=== PATIENT | male | born 1945 | race Caucasian/White ===

== ENCOUNTER → 2021-04-22 15:03 | Outpatient (CLI) | payer MEDICARE, SELFPAY | PROVIDERS: Visit Provider Obstetrics & Gynecology Gynecology | DX: Z01.812 Encounter for preprocedural laboratory examination (principal); Z11.52 Encounter for screening for COVID-19 | CPT/HCPCS: U0003 ==

== ENCOUNTER → 2023-02-20 07:34 | Outpatient (CLI) | payer MEDICARE, SELFPAY ==
--- NOTE | 2023-02-20 07:40 | NM_ITS ---
FINAL REPORT CLINICAL HISTORY: RENAL CELL CARCINOMA RIGHT KIDNEY, C/O RT SHOULDER PAIN FINDINGS: Multiple projection images of the axial and appendicular skeleton were obtained after the intravenous injection of 25.9 mCi technetium 99m MDP. There is abnormal increased activity in the lateral right scapula. There is a photopenic central region. Finding corresponds to a lucent lesion on plain film consistent with osseous metastases. There is mild asymmetric activity in the mid right humerus which correspond to a segment of cortical expansion on plain film which may be related to underlying cortical mass. Alternatively, this could be related to traction response at the deltoid tuberosity. IMPRESSION: Increased activity in the lateral right scapula consistent with osseous metastases. Mild activity in the mid right humeral diaphysis which may be neoplastic or related to reactive change at the deltoid tuberosity. Reviewed, Interpreted and Dictated by Nicanor Raymond MD Transcribed by Tammie Nieto Authenticated and . [facility]
--- NOTE | 2023-02-20 08:01 | MR_ITS ---
FINAL REPORT CLINICAL HISTORY: RENAL CELL CARCINOMA OF RIGHT KIDNEY limited rom x 3 months shoulder pain FINDINGS: Multiple planar MR imaging of the right shoulder was performed with and without contrast. There is an expansile lobular mass in the region of the bony glenoid measuring 5.8 x 4.8 cm. This mass demonstrates increased T2 and decreased T1 signal with intense contrast enhancement consistent with a destructive aggressive mass. Mass extends to the margin of the articular surface but not through the articular surface. There is a trace amount of fluid in the subacromial/subdeltoid bursa probably due to bursitis. Supraspinatus tendon is intact. The biceps tendon is intact. IMPRESSION: Large destructive lesion in the region of the bony glenoid most consistent with renal cell metastasis. Preserved articular surfaces of the glenohumeral joint. Reviewed, Interpreted and Dictated by Nicanor Raymond MD Transcribed by Sujit Kam Authenticated and [facility]
--- NOTE | 2023-02-20 12:53 | XR_ITS ---
FINAL REPORT CLINICAL HISTORY: RT SHOULDER PAIN, H/O RT RENAL CELL CARCINOMA. MRI OF RT SHOULDER DONE TODAY FINDINGS: Right humerus Two views were obtained. There is no acute fracture or dislocation. There is an area of abnormal cortical expansion in the mid humeral diaphysis near the expected region of the deltoid tuberosity. It is more prominent than expected. It corresponds to abnormal signal on the bone scan, underlying cortical metastases cannot be excluded. IMPRESSION: Abnormal cortical expansion in the mid humeral diaphysis as above, underlying cortical metastases cannot be excluded. Reviewed, Interpreted and Dictated by Nicanor Raymond MD Transcribed by Tammie Nieto Authenticated and [facility]
--- NOTE | 2023-02-20 12:53 | XR_ITS ---
FINAL REPORT CLINICAL HISTORY: MRI OF RT SHOULDER DONE TODAY. C/O RT SHOULDER PAIN, H/O RENAL CELL CARCINOMA. FINDINGS: Right shoulder Two views were obtained. There is no acute fracture or dislocation. There is a lucent destructive mass in the right bony glenoid and lateral scapula measuring 5.2 x 4.0 cm. This corresponds to abnormal hypermetabolism on the bone scan consistent osseous metastases. IMPRESSION: Destructive mass in the right bony glenoid and lateral scapula consistent with osseous metastases. Reviewed, Interpreted and Dictated by Nicanor Raymond MD Transcribed by Tammie Nieto Authenticated and [facility]
== END ==
PROVIDERS: PCP Physician Assistant; Visit Provider Internal Medicine Hematology & Oncology
DX: M25.511 Pain in right shoulder (principal); C64.1 Malignant neoplasm of right kidney, except renal pelvis
CPT/HCPCS: 73030; 73060; 73223; 78306; A9503; A9576

== ENCOUNTER 2023-07-24 15:37 | Emergency (ER) | payer MEDICARE, SELFPAY ==
[2023-07-24 15:40] VITALS: BP 149/81; PULSE 80; RESP 18; TEMP 36.6; O2SAT 96; BMI 27.8
--- NOTE | 2023-07-24 15:41 | PC.NURSE ---
pt pinching nose just below bridge of nose r/t nose bleed from L nare.
[2023-07-24 15:51] VITALS: BMI 27.8
--- NOTE | 2023-07-24 15:53 | PC.NURSE ---
Dr. Diaz at BS
[2023-07-24 16:17] LABS: Basophils % 0.2 % (0.1-2.0); Eosinophils # 0.1 K/mm3 (0.0-0.4); Eosinophils % 0.9 % (0.1-12.0); Hematocrit 35.9 % (42.0-52.0); Hemoglobin 12.5 g/dL (14.1-18.0); Lymphocytes % 17.5 % (10-50); Mean Corpuscular HGB Conc 34.9 g/dL (31.8-35.4); Mean Corpuscular Volume 97.5 fl (80-94); Mean Platelet Volume 8.6 fl (7.4-10.4); Monocytes # 0.3 K/mm3 (0.1-1.0); Monocytes % 5.5 % (1.7-9.3); Neutrophils # 4.2 K/mm3 (1.8-7.8); Neutrophils % 75.9 % (37.0-80.0); Platelet Count 124 K/mm3 (142-424); Red Blood Count 3.68 M/mm3 (4.60-6.20); Red Cell Distribution Width 14.2 % (11.5-17.5); White Blood Count 5.5 K/mm3 (4.8-10.8)
[2023-07-24 16:19] LABS: Chloride 108 mmol/L (98-107); Sodium 141 mmol/L (136-145)
[2023-07-24 16:20] LABS: Potassium 4.3 mmoL/L (3.5-5.1)
--- NOTE | 2023-07-24 16:21 | HMH.EDGENADL ---
Discharge Plan Disposition Patient Disposition: Home, Self-Care Condition: Good Chief Complaint: Epistaxis Referrals Follow up/Referrals: Roseline Payne PA [Primary Care Provider] - See instructions Clinical Impressions Clinical Impression: Epistaxis Instructions Patient Instructions: DI for Nosebleed Discharge ED Provider: Johnny Diaz General Adult HPI General Chief complaint: Epistaxis Stated complaint: Nose Bleed Time Seen by Provider: 07/24/23 16:01 Mode of Arrival: Ambulatory Limitations: No Limitations Description of Symptoms (Recalled from ER Triage Doc. 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 Pt reports he cough and his nose began bleeding. Pt not on blood thinners. bleeding noted from L nare. History of Present Illness HPI narrative: Patient has a PMHx significant for rectal cancer 10 years ago status post LAR and end colostomy, renal cancer status post nephrectomy with metastases to the bones and lungs actively on chemotherapy who presents to the ED with complaints of epistaxis. Patient has had 15 minutes prior to arrival, the patient sneezed and immediately had a profuse nosebleed with bright red blood. Patient is not on any blood thinners. Patient decided come straight to the ED for evaluation. Patient denies any recent fevers, chills, easy bruising. Related Data Allergies Allergy/AdvReac Type Severity Reaction Status Date / Time No Known Allergies Allergy Verified 07/24/23 15:52 [facility] Disclaimer: The information contained in this section may have been updated after the patient was seen, as this information can be updated by other users. Social History Smoking Status: Never smoker alcohol intake: never current occupational status: unemployed Travel in the last 8 weeks: None ROS Obtained: Yes All systems reviewed & no additional complaints except as documented Physical Exam General General appearance: alert and in no apparent distress Head Head exam: atraumatic, normocephalic and normal inspection Eye Eye exam: Present normal appearance, PERRL and EOMI; Absent scleral icterus or nystagmus ENT ENT exam: Present normal exam, mucous membranes moist, normal external ear exam and other (Patient has dried blood in the naris, currently clamped) Neck Neck exam: Present normal inspection, full ROM and trachea midline Chest Chest inspection: Present normal inspection and symmetric chest wall rise; Absent tenderness Respiratory Respiratory exam: Present normal lung sounds bilaterally; Absent respiratory distress, wheezes or accessory muscle use Cardiovascular Cardiovascular exam: Present regular rate, normal rhythm and normal heart sounds Abdominal Exam Abdominal exam: Present soft; Absent distention, tenderness, guarding, rebound, rigidity, trauma, ascites or pulsatile mass exam: Present deferred Extremities Exam Extremities exam: Present normal inspection and full ROM; Absent tenderness Back Exam Back exam: Present normal inspection and full ROM; Absent tenderness Neurological Exam Neurological exam: Present alert, oriented X3, normal gait and motor sensory deficit Psychiatric Psychiatric exam: Present normal affect and normal mood Skin Skin exam: Present warm, dry and normal color Medical Decision Making Medical Records Medical records reviewed: Yes I reviewed the patient's medical records. Nate Inquiry Pt receiving controlled substance: No Nate was queried for this patient: No Vital Signs: 07/24/23 15:40 07/24/23 16:30 07/24/23 17:00 Temperature 97.8 F Temperature Source Oral Pulse Rate 72 73 Pulse Rate [Right Radial] 80 Respiratory Rate 18 18 16 Blood Pressure 123/75 130/77 Blood Pressure [Right Arm] 149/81 H Blood Pressure Mean 92 93 Blood Pressure Mean [Right Arm] 103 Blood Pressure Source [Right Arm] Automatic Cuff Blood Pressure Position [Right Arm] Sitting 02 Sat by Pulse Oximetry 96 95 9
[2023-07-24 16:22] LABS: Alanine Aminotransferase 23 U/L (12-78); Albumin Level 3.8 g/dl (3.5-5.0); Albumin/Globulin Ratio 1.2 (1.1-1.8); Alkaline Phosphatase 125 U/L (38-126); Anion Gap 12.3 mEq/L (5-15); Aspartate Amino Transferase 30 U/L (17-59); Bilirubin,Total 0.6 mg/dl (0.2-1.3); Blood Urea Nitrogen 21 mg/dl (9-20); Carbon Dioxide 25 mmol/L (22.0-30.0); Creatinine Clearance Estimated 40 mL/min (50-200); Estimated Glomerular Filt Rate 33 ml/min (>60); GFR (African American) 40 ML/MIN (>60); Globulin 3.1 g/dL (1.3-3.2); Total Protein,Serum 6.9 g/dl (6.3-8.2)
[2023-07-24 16:23] LABS: Calcium 9.3 mg/dl (8.4-10.2); Glucose 104 mg/dl (74-100); INR 1.02 (0.9-1.1)
[2023-07-24 16:30] VITALS: BP 123/75; PULSE 72; RESP 18; O2SAT 95
[2023-07-24 17:00] VITALS: BP 130/77; PULSE 73; RESP 16; O2SAT 97
--- NOTE | 2023-07-24 17:06 | PC.NURSE ---
Patient's face and hands cleaned up; patient's nose is no longer bleeding. Call ardon within reach
--- NOTE | 2023-07-24 17:08 | PC.NURSE ---
Dr. Diaz at BS
[2023-07-24 17:25] VITALS: BP 128/78; PULSE 69; RESP 18; TEMP 36.6; O2SAT 97
== END 2023-07-24 17:28 | disposition home or self-care (01) ==
PROVIDERS: Emergency Provider Emergency Medicine; PCP Physician Assistant
DX: R04.0 Epistaxis (principal); C64.9 Malignant neoplasm of unspecified kidney, except renal pelvis; C79.51 Secondary malignant neoplasm of bone
CPT/HCPCS: 80053; 85025; 85610; 99284

== ENCOUNTER → 2023-10-18 13:16 | Outpatient (CLI) | payer MEDICARE, SELFPAY ==
[2023-10-18 14:33] LABS: Magnesium 1.7 mg/dl (1.6-2.3)
== END ==
PROVIDERS: PCP Physician Assistant; Visit Provider Internal Medicine Hematology & Oncology
DX: C64.1 Malignant neoplasm of right kidney, except renal pelvis (principal)
CPT/HCPCS: 83735

== ENCOUNTER 2024-06-06 21:50 | Emergency (ER) | payer MEDICARE, SELFPAY ==
[2024-06-06 21:52] VITALS: BP 143/87; PULSE 71; RESP 20; TEMP 36.7; O2SAT 97; BMI 24.1
--- NOTE | 2024-06-06 22:10 | HMH.EDGENADL ---
Discharge Plan Disposition Patient Disposition: Home, Self-Care Referrals Follow up/Referrals: Roseline Payne PA [Primary Care Provider] - See instructions Activity Restrictions/Add. Instructions Additional Instructions/Restrictions: Please follow-up with your primary care provider. Please return to the emergency department if you develop any new or worsening symptoms or become concerned for your health. Clinical Impressions Clinical Impression: Generalized weakness, Complication of ostomy, Dehydration, Metastatic renal cell carcinoma, CKD (chronic kidney disease) Instructions Patient Instructions: DI for Diarrhea and Traveler's Diarrhea -- Adult, DI for Diarrhea and Traveler's Diarrhea -- Child, DI for Nausea -- Adult, DI for Nausea -- Child Discharge ED Provider: Reji Martinez General Adult HPI <Reji Martinez MD - Last Filed: 06/06/24 23:05> General Chief complaint: Nausea/Vomiting/Diarrhea Stated complaint: Weakness,diarrhea,on chemo Time Seen by Provider: 06/06/24 22:05 History of Present Illness HPI narrative: Patient is a 78-year-old male with a history of rectal cancer and has had an ostomy since 2006 most recently was also diagnosed with metastatic renal cell carcinoma currently undergoing chemotherapy with an oral chemotherapy pill as well as immunotherapy infusions. Has had some increased stool output. States the consistency has been similar just increased stool output. Denies any abdominal pain denies any nausea or vomiting fevers or chills. 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 Related Data Allergies Allergy/AdvReac Type Severity Reaction Status Date / Time No Known Allergies Allergy Verified 07/24/23 15:52 PFSH <Reji Martinez MD - Last Filed: 06/06/24 23:05> PFS Disclaimer: The information contained in this section may have been updated after the patient was seen, as this information can be updated by other users. Social History (Updated 07/24/23 @ 17:18 by Johnny Diaz MD) Smoking Status: Never smoker alcohol intake: never current occupational status: unemployed Travel in the last 8 weeks: None <Reji Martinez MD - Last Filed: 06/06/24 23:05> ROS Obtained: Yes All systems reviewed & no additional complaints except as documented Physical Exam <Reji Martinez MD - Last Filed: 06/06/24 23:05> General General appearance: alert Respiratory Respiratory exam: Present normal lung sounds bilaterally Cardiovascular Cardiovascular exam: Present regular rate and normal rhythm Abdominal Exam Abdominal exam: Present soft and other (Ostomy with loose but semiformed stool yellow in nature no significant tenderness throughout the abdomen); Absent distention or tenderness Neurological Exam Neurological exam: Present alert and oriented X3 Medical Decision Making <Reji Martinez MD - Last Filed: 06/06/24 23:05> Nate Inquiry Pt receiving controlled substance: No Vital Signs: 06/06/24 21:52 Temperature 98.0 F Temperature Source Oral Pulse Rate [Left Radial] 71 Respiratory Rate 20 Blood Pressure [Right Arm] 143/87 H Blood Pressure Mean [Right Arm] 105 Blood Pressure Source [Right Arm] Automatic Cuff Blood Pressure Position [Right Arm] Sitting 02 Sat by Pulse Oximetry 97 Oxygen Delivery Method Room Air Lab Data Lab results reviewed: Yes I reviewed the patient's lab results. Lab Results 06/06/24 22:04: WBC 5.3, RBC 4.31 L, Hgb 13.6 L, Hct 42.2, MCV 97.8 H, MCH 31.5 H, MCHC 32.2, RDW 16.5, Plt Count 184, MPV 9.1, Neut % (Auto) 64.0, Lymph % (Auto) 28.9, [place] % (Auto) 5.6, Eos % (Auto) 0.8, Baso % (Auto) 0.7, Neut # (Auto) 3.4, Lymph # (Auto) 1.5, [place] # (Auto) 0.3, Eos # (Auto) 0.0, Baso # (Auto) 0.0, Sodium 138, Potassium 5.2 H, Chloride 112 H, Carbon Dioxide 19 L, Anion Gap 12.2, BUN 36 H, Creatinine 2.80 H, Estimated GFR 22 L, Est GFR ( Amer) 27 L, Glucose 77, Calcium 9.0, Magnesium 2.1, Total Bilirubin 0.5, AST 25, ALT 15, Alkaline Phosphatase 89, Total Protein 7.0, Albumin 4.1, Globulin 2.9, Albumin/Globulin Ratio 1.4, Procalcitonin 0.096 06/06/24 22:04 06/06/24 22:04 Orders (Tests/Meds): ED MEDICATIONS Discontinued Medications Generic Name Dose Route Start Last Admin Trade Name Olamide PRN Reason Stop Dose Admin Lactated Ringer's 1,000 mls @ 999 mls/hr 06/06/24 22:15 06/06/24 23:10 Lactated Ringer's 1000 Ml Bag IV 06/06/24 23:15 999 mls/hr .Q1H1M NEGRO Administration ORDERS Category Date Time Status CBC w/Auto Diff [Complete Blood Count Auto Diff] Stat Lab 06/06/24 22:04 Completed CMP [Comprehensive Metabolic Panel] Stat Lab 06/06/24 22:04 Completed Magnesium Stat Lab 06/06/24 22:04 Completed Procalcitonin Stat Lab 06/06/24 22:04 Completed Medical Decision Narrative: 78-year-old male present today with increased ostomy output and generalized weakness. Most likely he is dehydrated from volume losses and may have some electrolyte abnormalities he has a benign abdominal exam not consistent with surgical emergency. IV fluids have been administered will check basic blood work including electrolytes and reassess. Reassessment 11:04 PM patient's labs have returned his creatinine is gone from 2-2.8 he appears to be dehydrated clinically and from a laboratory standpoint. IV fluids have been ordered but not yet been administered care will be transitioned to Dr. Angeline Soriano to follow-up evaluation after patient's IV fluids have been administered. <Nick Soriano MD - Last Filed: 06/07/24 00:23> Vital Signs: 06/06/24 21:52 Temperature 98.0 F Temperature Source Oral Pulse Rate [Left Radial] 71 Respiratory Rate 20 Blood Pressure [Right Arm] 143/87 H Blood Pressure Mean [Right Arm] 105 Blood Pressure Source [Right Arm] Automatic Cuff Blood Pressure Position [Right Arm] Sitting 02 Sat by Pulse Oximetry 97 Oxygen Delivery Method Room Air Lab Data Lab Results 06/06/24 22:04: WBC 5.3, RBC 4.31 L, Hgb 13.6 L, Hct 42.2, MCV 97.8 H, MCH 31.5 H, MCHC 32.2, RDW 16.5, Plt Count 184, MPV 9.1, Neut % (Auto) 64.0, Lymph % (Auto) 28.9, [place] % (Auto) 5.6, Eos % (Auto) 0.8, Baso % (Auto) 0.7, Neut # (Auto) 3.4, Lymph # (Auto) 1.5, [place] # (Auto) 0.3, Eos # (Auto) 0.0, Baso # (Auto) 0.0, Sodium 138, Potassium 5.2 H, Chloride 112 H, Carbon Dioxide 19 L, Anion Gap 12.2, BUN 36 H, Creatinine 2.80 H, Estimated GFR 22 L, Est GFR ( Amer) 27 L, Glucose 77, Calcium 9.0, Magnesium 2.1, Total Bilirubin 0.5, AST 25, ALT 15, Alkaline Phosphatase 89, Total Protein 7.0, Albumin 4.1, Globulin 2.9, Albumin/Globulin Ratio 1.4, Procalcitonin 0.096 Orders (Tests/Meds): ED MEDICATIONS Discontinued Medications Generic Name Dose Route Start Last Admin Trade Name Freq PRN Reason Stop Dose Admin Lactated Ringer's 1,000 mls @ 999 mls/hr 06/06/24 22:15 06/06/24 23:10 Lactated Ringer's 1000 Ml Bag IV 06/06/24 23:15 999 mls/hr .Q1H1M NEGRO Administration ORDERS Category Date Time Status CBC w/Auto Diff [Complete Blood Count Auto Diff] Stat Lab 06/06/24 22:04 Completed CMP [Comprehensive Metabolic Panel] Stat Lab 06/06/24 22:04 Completed Magnesium Stat Lab 06/06/24 22:04 Completed Procalcitonin Stat Lab 06/06/24 22:04 Completed Medical Decision Narrative: 78-year-old male present today with increased ostomy output and generalized weakness. Most likely he is dehydrated from volume losses and may have some electrolyte abnormalities he has a benign abdominal exam not consistent with surgical emergency. IV fluids have been administered will check basic blood work including electrolytes and reassess. Reassessment 11:04 PM patient's labs have returned his creatinine is gone from 2-2.8 he appears to be dehydrated clinically and from a laboratory standpoint. IV fluids have been ordered but not yet been administered care will be transitioned to Dr. Angeline Soriano to follow-up evaluation after patient's IV fluids have been administered. Bo MARTIN: I assumed care of the patient at the time of handoff from the prior provider. On reassessment patient is well-appearing and has completed his fluid resuscitation. Patient discharged in stable condition. Return precautions given. Critical Care <Reji Martinez MD - Last Filed: 06/06/24 23:05> Critical Care Time Critical Care Time: No
[2024-06-06 22:15] LABS: Basophils % 0.7 % (0.1-2.0); Eosinophils % 0.8 % (0.1-12.0); Hematocrit 42.2 % (42.0-52.0); Hemoglobin 13.6 g/dL (14.1-18.0); Lymphocytes # 1.5 K/mm3 (0.7-4.5); Lymphocytes % 28.9 % (10-50); Mean Corpuscular HGB Conc 32.2 g/dL (31.8-35.4); Mean Corpuscular Hemoglobin 31.5 pg (27.0-31.2); Mean Corpuscular Volume 97.8 fl (80-94); Mean Platelet Volume 9.1 fl (7.4-10.4); Monocytes # 0.3 K/mm3 (0.1-1.0); Monocytes % 5.6 % (1.7-9.3); Neutrophils # 3.4 K/mm3 (1.8-7.8); Platelet Count 184 K/mm3 (142-424); Red Blood Count 4.31 M/mm3 (4.60-6.20); Red Cell Distribution Width 16.5 % (11.5-17.5); White Blood Count 5.3 K/mm3 (4.8-10.8)
[2024-06-06 22:16] LABS: Chloride 112 mmol/L (98-107); Potassium 5.2 mmoL/L (3.5-5.1); Sodium 138 mmol/L (136-145)
[2024-06-06 22:19] LABS: Alanine Aminotransferase 15 U/L (12-78); Albumin Level 4.1 g/dl (3.5-5.0); Albumin/Globulin Ratio 1.4 (1.1-1.8); Alkaline Phosphatase 89 U/L (38-126); Anion Gap 12.2 mEq/L (5-15); Aspartate Amino Transferase 25 U/L (17-59); Bilirubin,Total 0.5 mg/dl (0.2-1.3); Blood Urea Nitrogen 36 mg/dl (9-20); Carbon Dioxide 19 mmol/L (22.0-30.0); Estimated Glomerular Filt Rate 22 ml/min (>60); GFR (African American) 27 ML/MIN (>60); Globulin 2.9 g/dL (1.3-3.2); Glucose 77 mg/dl (74-100)
[2024-06-06 22:20] LABS: Magnesium 2.1 mg/dl (1.6-2.3)
[2024-06-06 22:45] LABS: Procalcitonin 0.096 ng/mL (0.0-2.0)
[2024-06-06] MEDS: LACTATED RINGERS 1000ML 1,000 ML 999 ML IV (23:10)
--- NOTE | 2024-06-07 00:26 | PC.NURSE ---
rounded on pt at this time. pt voices no needs
[2024-06-07 00:34] VITALS: BP 150/83; PULSE 60; RESP 16; TEMP 36.7; O2SAT 98
== END 2024-06-07 00:35 | disposition home or self-care (01) ==
PROVIDERS: Emergency Provider Student in an Organized Health Care Education/Training Program; PCP Physician Assistant
DX: E86.0 Dehydration (principal); R53.1 Weakness; K94.00 Colostomy complication, unspecified; C64.9 Malignant neoplasm of unspecified kidney, except renal pelvis; N18.9 Chronic kidney disease, unspecified; Z92.21 Personal history of antineoplastic chemotherapy
CPT/HCPCS: 80053; 83735; 84145; 85025; 96360; 99284; J7120

== ENCOUNTER 2025-10-12 13:45 | Outpatient (CLI) | payer MEDICARE, SELFPAY ==
--- OUTSIDE RECORDS SUMMARY | 2025-08-28 07:46 | XMS_ITS | Encounter Summary ---
Author Organization [facility] Address [address] [place] [id number] Care Team Providers Care [employer] Name Role Phone Evelio Menezes MD Primary Care Provider [phone] Kwesi Colin MD Unavailable Reason for Visit * Episode Based Medications (Routine) - Authorized Specialty Diagnoses / Procedures Referred By Contac t Referred To Contact Diagnoses Renal cell carcinoma of right kidney Procedures IN ZOLEDRONIC ACID 1MG Kwesi Colin MD [address] [address] Phone: tel: fax: Kwesi Colin MD [address] [address] Phone: tel: fax: Referral ID Status Reason Start Date Expiration Date V isits Requested Visits Authorized [id number] Authorized 02/06/2025 08/08/2026 1 5 Encounter Details Date Type Department Care Team (Latest Contact Info) Description 08/28/2025 8:46 AM EDT - 08/28/2025 11:59 PM EDT Hospital Encounter [facility] [address] [place] [address] Renal cell carcinoma of right kidney (Primary Dx) Discharge Disposition: Home or Self Care Social History Tobacco Use Types Packs/Day Years Used Date Smoking Tobacco: Never Passive Smoke Exposure: Never Smokeless Tobacco: Never Tobacco Cessation:Counseling Given: Not Answered Alcohol Use Standard Drinks/Week Comments No 0 (1 standard drink = 0.6 oz pur e alcohol) Humiliation, Afraid, Rape, and Kick questionnair e Answer Date Recorded Within the last year, have y ou been afraid of your partner or ex-partner? No 06/12/2024 Within the last year, have y ou been humiliated or emotionally abused in other ways by your partner or ex-partner? No Within the last year, have y ou been kicked, hit, slapped, or otherwise physically hurt by your partner or ex-partner? No 06/12/2024 Within the last year, have y ou been raped or forced to have any kind of sexual activity by your partner or ex-partner? No 06/12/2024 PHQ-2 Answer Date Recorded Patient Health Questionnaire-2 Score 0 07/31/2025 Hunger Vital Sign Answer Date Recorded Within the past 12 months, y ou worried that your food would run out before you got the money to buy more. Never true 06/12/20 24 Within the past 12 months, t he food you bought just didn't last and you didn't have money to get more. Never true 06/12/2024 PRAPARE - Transportation Answer Date Re corded In the past 12 months, has l ack of transportation kept you from medical appointments or from getting medications? No 05/20 In the past 12 months, has l ack of transportation kept you from meetings, work, or from getting things needed for daily living? No 06/12/2024 Housing Stability Vital Sign Answer Ambrosio e Recorded In the last 12 months, was t here a time when you were not able to pay the mortgage or rent on time? No 06/12/2024 [address] of [address] Lived in the Last Year Not on f ile 06/12/2024 In the last 12 months, was t here a time when you did not have a steady place to sleep or slept in a longterm (including now)? No 06/12/2024 Utilities Answer Date Recorded In the past 12 months has th e electric, gas, oil, or water company threatened to shut off services in your home? No 06/12/2024 PHQ-2A Answer Date Recorded Depression Risk 0 08/20/2024 Sex and Gender Information Value Date Recorded Sex Assigned at Not on file Legal Sex Male 7:30 PM EDT Gender Identity Not on file Sexual Orientation Not on file documented as of this encounter Last Filed Vital Signs Vital Sign Reading Time Taken Comments Blood Pressure 137/71 08/28/2025 8:47 AM EDT Pulse 76 08/28/2025 8:47 AM EDT Temperature 36.4 C (97.5 F) 08/28/2025 8:47 AM EDT Respiratory Rate 16 08/28/2025 8:47 AM EDT Oxygen Saturation 98% 08/28/2025 8:47 AM EDT Inhaled Oxygen Concentration - - Weight 97.2 kg (214 lb 4.6 oz) 08/28/2025 8:47 A M EDT Height 180.3 cm (5' 11 ) 08/28/2025 8:47 AM EDT Body Mass Index 29.89 08/28/2025 8:47 AM EDT documented in this encounter Medications at Time of Discharge atorvastatin (Lipitor) 20 MG tablet Take 1 tablet (20 mg) by mouth nightly. 0 cetirizine (ZyrTEC) 10 MG tablet Take 1 tablet (10 mg) by mouth every morning. 0 docusate sodium (Colace) 100 MG capsule Take 1 capsule (100 mg) by mouth 2 (two) times a day as needed. 9 levothyroxine (Synthroid) 75 MCG tablet Take 1 tablet (75 mcg) by mouth daily before breakfast. 30 tablet 1 5 loperamide (Imodium A-D) 2 MG tablet Take 1 tablet (2 mg) by mouth 4 (four) times a day if needed for diarrhea. losartan (Cozaar) 100 MG tablet TAKE 1 TABLET BY MOUTH DAILY. 30 tablet 1 5 mirtazapine (Remeron) 15 MG tablet TAKE 1 TABLET (15 MG) BY MOUTH EVERY NIGHT. 90 tablet 1 5 multivitamin (Theragran-M) tablet Take 1 tablet by mouth daily. NIFEdipine XL (Procardia XL) 90 MG 24 hr tabletIndications:P rimary hypertension Take 1 tablet by mouth daily. Do not crush, chew, or split. 90 tablet 2 5 01/09/20 26 Nutritional Supplements (Boost High Protein) liquid Drink 3 daily. 237 mL 11 3 ondansetron ODT (Zofran-ODT) 8 MG disintegrating tablet Take 1 tablet (8 mg) by mouth every 8 (eight) hours if needed for nausea or vomiting. 90 tablet 1 4 Ostomy Supplies (NEW IMAGE DRAINABLE POUCH 70MM) Pouch misc See administration instructions. 2 oxyCODONE (Roxicodone) 5 MG immediate release tabletIndications:R enal cell carcinoma of right kidney Take 1 tablet by mouth every 8 hours as needed for severe pain. 90 tablet 5 prochlorperazine (Compazine) 10 MG tablet Take 1 tablet (10 mg) by mouth as needed. 3 pyridoxine 25 MG tablet Take 1 tablet (25 mg) by mouth daily. B6 tamsulosin (Flomax) 0.4 MG 24 hr capsule Take 1 capsule (0.4 mg) by mouth nightly. 9 Tivozanib HCl 0.89 MG capsuleIndications: Renal cell carcinoma of right kidney Take 0.89 mg by mouth every other day. 15 capsule 5 5 venlafaxine XR (Effoxor-XR) 37.5 MG 24 hr capsule Take 1 capsule (37.5 mg) by mouth nightly. 0 zoledronic acid (Zometa) 4 MG/5ML injection Infuse 5 mL into a venous catheter every 3 months. diphenhydrAMINE (Benadryl) 50 MG capsuleIndications: Renal cell carcinoma of right kidney Take once 1 hour prior to scan 1 capsule 5 10/02/20 25 predniSONE (Deltasone) 50 MG tabletIndications:R enal cell carcinoma of right kidney Take 1 tablet 13 hours prior to scan. Take 1 tablet 7 hours prior to scan. Take 1 tablet 1 hour prior to scan. 3 tablet 5 10/02/20 25 documented as of this encounter Plan of Treatment Upcoming Encounters Date Type Department Care Team (Late st Contact Info) Description 10/23/2025 2:00 PM EST Appointment [facility] [address] [place] [phone] 12/23/2025 1:00 PM EST Office Visit [facility] Nephrology, Bone & Mineral Metabolism [address], [address] [place] [address] Ayden Sarmiento MD [address] [place] [address] 01/26/2026 1:30 PM EDT Office Visit Medical [facility] [address], [address] [place] [address] Winston Rolle MD [address] [place] [address] documented as of this encounter Procedures Procedure Name Priority Date/Time Associated Diagnosis Comments COMPREHENSIVE METABOLIC PANEL, PLASMA STAT 08/28/2025 8:51 AM EDT Renal cell carcinoma of right kidney documented in this encounter Results * (ABNORMAL) Comprehensive metabolic panel (08/28/2025 8:51 AM EDT) Glucose, Plasma 121(H) 74 - 99 mg/dL 08/28/2025 9:36 AM EDT [facility] BUN, Plasma 19 8 - 23 mg/dL 08/28/2025 9:36 AM EDT [facility] Creatinine, Plasma 2.34(H) 0.70 - 1.20 mg/dL 08/28/2025 9:36 AM EDT [facility] BUN/Creatinine Ratio 8 08/28/2025 9:36 AM EDT [facility] Sodium, Plasma 142 136 - 145 mmol/L 08/28/2025 9:36 AM EDT [facility] Potassium, Plasma 4.5 3.6 - 4.9 mmol/L 08/28/2025 9:36 AM EDT [facility] Chloride, Plasma 110(H) 97 - 107 mmol/L 08/28/2025 9:36 AM EDT [facility] CO2, Plasma 20(L) 22 - 29 mmol/L 08/28/2025 9:36 AM EDT [facility] Anion Gap 12 6 - 16 mmol/L 08/28/2025 9:36 AM EDT [facility] Total Calcium, Plasma 8.8(L) 8.9 - 10.2 mg/dL 08/28/2025 9:36 AM EDT [facility] Total Protein 6.9 6.3 - 7.9 g/dL 08/28/2025 9:36 AM EDT [facility] Albumin, Plasma 4.0 3.5 - 5.2 g/dL 08/28/2025 9:36 AM EDT [facility] AST, Plasma 22 10 - 50 U/L 08/28/2025 9:36 AM EDT [facility] Comment:Hemolyzed, result ma y be falsely increased. ALT, Plasma 15 10 - 50 U/L 08/28/2025 9:36 AM EDT [facility] Alkaline Phosphatase, Plasma 94 40 - 115 U/L 08/28/2025 9:36 AM EDT [facility] Total Bilirubin, Plasma 0.3 0.2 - 1.1 mg/dL 08/28/2025 9:36 AM EDT [facility] eGFRcr 27.8 mL/min/1.7 3m*2 08/28/2025 9:36 AM EDT [facility] Comment:Reported eGFRcr in m L/min/1.73m2 is based the CKD-EPI 2020 equation that does not use a race coefficient. Blood Venous blood specimen / Unknown Venipuncture / Unknown 08/28/2025 8:51 AM EDT 08/28/2025 9:02 AM EDT us Kwesi Colin MD LAB BLOOD ORDERABLES Final Resul t [facility] [address] [place] [address] documented in this encounter Visit Diagnoses Diagnosis Renal cell carcinoma of right kidney- Primary documented in this encounter Administered Medications Inactive Administered Medications - up to 3 most recent administrations Medication Order MAR Action Action Date Dose Rate Site zoledronic acid (Zometa) 3.04 mg in sodium chloride 0.9 % 100 mL IVPB 3.04 mg (rounded from 3 mg), Intravenous, Once, 1 dose, On Sun08/28/25 at 1015, Administer over 15 Minutes, RoutineIndications:Renal cell carcinoma of right kidney New Bag 08/28/2025 10:45 AM EDT 3.04 mg 455.2 mL/hr documented in this encounter Additional Health Concerns Assessment Noted Time A fall risk assessment has been complete d for the patient 08/28/2025 8:46 AM EDT A Body Mass Index follow-up plan has been documented for the patient 08/20/2025 10:48 PM EDT documented as of this encounter Care Teams [employer] Relationship Specialty Start Date End Date Evelio Menezes MD [address] [place] [phone] PCP - General 04/01/21 Kwesi Colin MD [address] [address] Consulting Physician Medical Oncology 09/06/21 documented as of this encounter
--- OUTSIDE RECORDS SUMMARY | 2025-09-25 14:00 | XMS_ITS | Encounter Summary ---
Author Organization [facility] Address [address] [place] [address] Care Team Providers Care Warp Hand Name Role Phone Evelio Menezes MD Primary Care Provider [phone] Kwesi Colin MD Unavailable Reason for Visit * Reason Comments Follow-up Renal cell carcinoma of right kidney Encounter Details Date Type Department Care Team (Late st Contact Info) Description 09/25/2025 2:00 PM EST Office Visit [facility] Multidisciplinary Oncology Clinic [address] [place] [address] Kwesi Colin MD [address] [address] Renal cell carcinoma of right kidney (Primary Dx) Social History Tobacco Use Types Packs/Day Years [...] place to sleep or slept in a assisted (including now)? No 06/12/2024 Utilities Answer Date [...] Sign Reading Time Taken Comments Blood Pressure 135/79 09/25/2025 1:42 PM EST Pulse 69 09/25/2025 1:42 PM EST Temperature 36.6 C (97.9 F) 09/25/2025 1:42 PM EST Respiratory Rate - - Oxygen Saturation 97% 09/25/2025 1:42 PM EST Inhaled Oxygen Concentration - - Weight 93.9 kg (207 lb) 09/25/2025 1:42 PM EST Height 180.3 cm (5' 11 ) 09/25/2025 1:42 PM EST Body Mass Index 28.87 09/25/2025 1:42 PM EST documented in this encounter Miscellaneous Notes * Progress Notes - Kwesi Colin MD - 09/25/2025 2:00 PM EST Medical Oncology Clinic Note Patient Name: Leno Matias Date of : 1945 80 y.o. Referring Physician:No referring provider defined for this encounter. Encounter Date: 09/25/2025 History of Present Illness The patient with mRCC who is here for a follow up visit. Persistent back pain is managed with daily analgesics. The contracts specialist has ruled out hip-related issues as the source of discomfort, noting that the pain is localized to the back rather than the hip. Significant pain is experienced upon standing and walking. The last CT scan was conductedin 05/2025. A history of radiation therapy on the left side was administered approximately 2 to 3 years ago. Over the past month, intermittent nausea has been reported, described as a nagging sensation ratherthan severe enough to warrant medication. Abdominal cramping and pain are also noted, but there have been no episodes of diarrhea. These symptoms are suspected to be side effects of chemotherapy medication. The patient is due for Zometa treatment this month, which was not scheduled last month. Oncology History: Oncology History Overview Note 12/18/2018 - Found to have incidental right renal mass measuring 5.6 x 4.2 cm during workup for pneumonia. Underwent right nephrectomy. Path showed Clear Cell RCC, measuring 6 cm, grade 2, tumor invaded into the renal sinus . [id number]. 04/06/2021 - Surveillance CT chest and abdomen/pelvis showed moderate right pleural effusion, right lower lobe 1.3 cm previously 0.6 cm and new left lower lobe 0.7 cm 04/26/2021 - Underwent CT guided lung biopsy of RLL nodule. Pathology showed Metastatic RCC, Clear Cell Type . He participated in PEDIGREE clinical trial. C1 Nivo/Ipi was initiated on 05/18/21 with grade 1 itchiness (improved with benadryl). No visible rash. 07/20/2021: Completed C4 of Nivo/Ipi 08/05/21: CT CAP after C4 with interval increase in RLL nodule form 13mm to 17mm, however per iRECIST criteria does not meet criteria for progression. As such he will be randomized to Nivolumab alone arm. Continue with maintenance Nivolumab infusion 11/02/2021: CT CAP showed interval mild increase in size of the right lower lobe pulmonary nodule measuring 19 mm compared to 17 mm previously. The remaining pulmonary nodules are unchanged in size. Persistent small to moderate right pleural effusion. 02/03/22: CT CAP showed stable disease 04/18/2022 : CT CAP showed stable disease He was off pedigree trial due to progression of non-target lesion in his bones He underwent SBRT to left iliac bone in [place] on 11/03/22 with 10 fractions and we continued with Nivolumab single agent as SOC. 01/25/23: CT CAP showed new left acetabulum lesion, mild interval increase in right glenoid bone lesion with soft tissue component and left posterior iliac bone soft tissue lesion. 03/12/23: Enrolled into -76 TIVO study and was randomized to nivolumab + Tivo. C1 was initiated. 06/23/24- tivozanib dose changed to every other day per study protocol due to fgrade 3 diarrhea Renal cell carcinoma 05/11/2021 Initial Diagnosis Renal cell adenocarcinoma (CMS/HCC) 05/18/2021 - 07/20/2021 Chemotherapy RES - nivolumab (Opdivo) 320 mg, IV tubing and flush 20 mL in sodium chloride 0.9 % 100 mL chemo IVPB, 3 mg/kg = 320 mg, Intravenous, Once, 4 of 4 cycles Administration: 320 mg (05/18/2021), 320 mg (06/08/2021), 320 mg (06/29/2021), 320 mg (07/20/2021) RES - ipilimumab (Yervoy) 105 mg, IV tubing and flush 20 mL in sodium chloride 0.9 % 50 mL chemo IVPB, 1 mg/kg = 105 mg, Intravenous, Once, 4 of 4 cycles Administration: 105 mg (05/18/2021), 105 mg (06/08/2021), 105 mg (06/29/2021), 105 mg (07/20/2021) 08/10/2021 - 09/06/2022 Research Study Participant [id number] Arm A: Nivolumab Every 28 Days Plan Provider: Kwesi Colin MD Treatment goal: Palliative Line of treatment: First Line Associated studies: Nivolumab+Ipilimumab with Nivolumab vs. Cabozantinib+Nivolumab in Metastatic Untreated RCC 10/04/2022 - 01/24/2023 Chemotherapy nivolumab (Opdivo) 480 mg in sodium chloride 0.9% 100 mL chemo IVPB, 480 mg, Intravenous, Once, 5 of 24 cycles Administration: 480 mg (10/04/2022), 480 mg (11/03/2022), 480 mg (12/01/2022), 480 mg (12/29/2022), 480 mg (01/24/2023) 03/12/2023 - 11/21/2024 Research Study Participant [id number]: Tivozanib + Nivolumab Every 28 Days Plan Provider: Kwesi Colin MD Treatment goal: [No plan goal] Line of treatment: [No plan line of treatment] Associated studies: [facility] RESEARCH PATIENT Past Medical, Surgical, Family and Social History: Reviewed, and unchanged from most recent clinic visit or updated as indicated. Allergies and Adverse Drug Reactions: Albuterol and Iodine Medications: Reviewed Review of Systems: 14 pt review of systems performed and negative except as noted in HPI. Physical Exam: Temp: [36.6 ??C (97.9 ??F)] 36.6 ??C (97.9 ??F) Heart Rate: [69] 69 BP: (135)/(79) 135/79 SpO2: [97 %] 97 % ECO General: Sitting/resting comfortably in chair, NAD HEENT: NCAT, PERRLA/EOMI, anicteric; no oral lesions Neck: Supple, no lymphadenopathy or JVD Heart: RRR, no MGR Lungs: CTAB; no rales, rhonchi or wheezes Abdomen: Soft, NTND, + BS Extremities: No edema, distal pulses intact Musculoskeletal: No focal tenderness or deformity Skin: No visible rashes or lesions Neuro: Grossly nonfocal; no localizing deficits of strength, sensation, or mentation Psychiatric: Normal mood and thought content LABS: No visits with results within 3 Day(s) from this visit. Latest known visit with results is: Hospital Outpatient Visit on 08/28/2025 Component Date Value Glucose, Plasma 08/28/2025 121 (H) BUN, Plasma 08/28/2025 19 Creatinine, Plasma 08/28/2025 2.34 (H) BUN/Creatinine Ratio 08/28/2025 8 Sodium, Plasma 08/28/2025 142 Potassium, Plasma 08/28/2025 4.5 Chloride, Plasma 08/28/2025 110 (H) CO2, Plasma 08/28/2025 20 (L) Anion Gap 08/28/2025 12 Total Calcium, Plasma 08/28/2025 8.8 (L) Total Protein 08/28/2025 6.9 Albumin, Plasma 08/28/2025 4.0 AST, Plasma 08/28/2025 22 ALT, Plasma 08/28/2025 15 Alkaline Phosphatase, Pl* 08/28/2025 94 Total Bilirubin, Plasma 08/28/2025 0.3 eGFRcr 08/28/2025 27.8 RADIOLOGY: COMPARISON: December 04, 2024 FINDINGS: Chest: Lymph Nodes and Mediastinum: Unchanged right lower paratracheal lymph node measuring 1.2 cm (series4 image 164), previously 1.2 cm, as well as an unchanged right hilar 1.6 cm lymph node (series 4 image 121), previously 1.5 cm. No mediastinal mass. No suspicious thyroid findings. Cardiovascular: The heart is normal in caliber. Thoracic great vessels are patent. Trace pericardial fluid. Lungs and Pleura: No suspicious lung nodules to suggest metastatic disease. Persistent right basilar parenchymal scarring, stable. Small unchanged bilateral pleural effusions, greater on the right. Musculoskeletal and Body Wall: Expansile lytic lesion in the right scapula, measuring approximately5.2 cm (series 2 image 26), unchanged. Abdomen/Pelvis: Solid Abdominal Organs: Unremarkable liver. Decompressed gallbladder. Unremarkable spleen. No suspicious pancreatic findings. No suspicious adrenal findings. Surgically absent right kidney. No suspicious mass in the left kidney. Mild to moderate left pelvocaliectasis. GI Tract/Mesentery/Peritoneum: The large and small bowel appear normal in caliber. Surgical changescompatible with partial left hemicolectomy, with colostomy in the left lower quadrant. No evidence of inflammatory change. No suspicious peritoneal/mesenteric findings. Pelvic Viscera: No suspicious pelvic mass lesions. Lymph Nodes/Vasculature: No lymphadenopathy by CT size criteria. The aortoiliac vasculature is patent and normal in caliber.. Mild calcific atherosclerosis of the abdominal aorta Free Fluid: Trace pelvic free fluid, similar in appearance compared to prior study, adjacent to thesmall bowel at the level of the bladder dome. Musculoskeletal and Body Wall: Redemonstration of lytic expansile lesion in the left iliac bone, which is increased in size, with increased invasion towards the left iliac wing, with lesion measuringapproximately 7.1 cm (series 1 image 56), with bilobed soft tissue component involving the gluteus medius, gluteus spencer, and iliopsoas muscles. Additional expansile lytic lesion in the left acetabular roof with enhancing soft tissue component measuring approximately 4.3 cm, increased from the prior exam. IMPRESSION: Chest: No evidence of thoracic disease progression. Abdomen/Pelvis: Interval increased osseous metastatic disease in the left iliac bone, with invasionof adjacent musculature, as well as enlargement of the left acetabular roof region, which may represent risk for impending pathologic fracture. ASSESSMENT AND PLAN: Leno Matias is a 79 y.o. male who presents for follow-up and continuation of tx. #Stage IV clear-cell renal cell carcinoma - Intermediate risk IMDC criteria Initially diagnosed incidentally in Nov 2018 s/p right radical nephrectomy. Noted to have progressing RLL and new LLL nodule on surveillance scan in March 2021. Biopsy of RLL nodule has returned positive for clear cell RCC. IMDC risk score: Intermediate risk for Karnofsky score, PS 80% Hemoglobin 13.5, platelets, calcium WNL, ECOG 1 - Previously discussed with current stage, our treatment goal is NOT curative intent. However, withtherapeutic interventions we aim to 1) prevent further complications from mass effect of cancer 2) prevent new metastatic lesions 3) stabilize and/or shrink existing lesions 4) preserve quality of life with tolerate side effects. - Previously discussed treatment options including [id number] combination with immune checkpointinhibitors and tyrosine kinase inhibitors. We also discussed the PDIGREE trial: PD-inhibitor (Nivolumab) and Ipilimumab followed by Nivolumab vs VEGF TKI cabozanitib with nivolumab. Patient expressedinterest in PEDIGREE trial and got the consent. - C1 Nivo/Ipi was initiated on 05/18/21 with grade 1 itchiness (improved with benadryl). No visible rash. Scans showed stable response as per iRECIST after four cycles of Nivo/Ipi. He is randomized toNivolumab single agent arm. - Restaging scan on 11/02/2021 - overall stable disease. Does not meet the criteria for disease progression as per iRECIST. - CT Imaging on 01/24/[address] Castorena showed stable disease - CT imaging on 04/18/22 reviewed by fl showed stable disease - CT scan (07/13/22) looks overall stable except mild increased in right pleural effusion. - CT CAP 10/04/22 was stable but did show an increase in met deposit of left iliac bone. He was offPedigree study due to progression in non-target lesion. - 10/04/[address] No for evaluation and possible treatment. Patient elected to receive treatment with Dr. Chan closer to home in [place]. Reports first XRT today, 11/03/22, with planned 10 fractions. - He was continued with single agent Nivolumab till January 2023. - 01/25/23: CT CAP showed new left acetabulum lesion, mild interval increase in right glenoid bone lesion with soft tissue component and left posterior iliac bone soft tissue lesion. - Due to progression on scans from January 2023, Dr. Colin recommended switching therapy; he previously received a total of 20 cycles of Nivolumab. - Options were: 1) TIVO study which is Tivo +/- Nivo vs. 2) radiation therapy to those bone lesionsand continue with IO vs. 3) cabozantinib - He chose option 1 and was consented for the study - C1 Nivo + Tivo was started on 03/12/23 (enrolled into 77). - 05/08/23: restaging scans - partial response - 07/11/23: Restaging scans - continued response -09/11/2023: reviewed his scans which showed stable disease -11/02/2023 - CT scan shows no evidence of disease progression. -06/10/24 to 06/13/24- hospitalization for grade 3 diarrhea - 06/19/24- CT scans reviewed - appears stable disease - 10/09/24- CT CAP shows no evidence of disease progression - 12/04/24- CT CAP shows no evidence of disease progression PLAN for 09/25/2025: - He had scans in May showed Interval increased osseous metastatic disease in the left iliac bone,with invasion of adjacent musculature, as well as enlargement of the left acetabular roof region, which may represent risk for impending pathologic fracture. Was seen by ortho but due to not having pain, recommended observation - he is now having pain, will plan to get scans michelet - he will get an appt with local rad onc to discuss about radiation to his left iliac bone - continue with monthly zometa - continue with Tivo 0.89 every other day - tried to obtain urine protein but did not able to provide the sample # Left hip pain - on oxycodone now - they will try to get local rad onc appt - will get scans aspa #Hypertension - Elevated in clinic but controlled at home - follow up PCP #Right shoulder pain secondary to bone Mets - resolved - Resolving - MRI and bone scan from [facility] showed large destructive lesion in the region of the bony glenoid and increased activity in the right scapula consistent with osseous mets #Immune mediated Hypothyroidism - Currently on levothyroxine 50 mcg - Last thyroid labs TSH 11.8 and Free T4 1.1 on 11/21/2024 - Increased Levothyroxine to 75 mcg & will continue to monitor - Check TSH with next visit if PCP has not checked recently #CKD - Cr is 1.93 today; baseline is around 2 - Will f/u with Nephrology at - Advised him to avoid nephrotoxic medications #Pruritus- resolved - Denies rash or itching today - Continue Clobetasol cream prn & continue to monitor - Benadryl PRN 35 minutes were spent with the patient of which 23 or more were counseling minutes regarding plan and coordination of care and follow up scheduling, symptom management, and possible treatment side effects. * Progress Notes - Alma Ernst, PharmD - 09/25/2025 2:00 PM EST Pharmacy Hematology/Oncology Treatment Plan Note Leno Matias is a 80 y.o. male with mccRCC. Cancer Staging No matching staging information was found for the patient. Study Patient: No Treatment Plan reviewed for Tivozanib. [x] Continuous oral therapy with Tivozanib Patient History: 07/20/21: Spoke with patient regarding any new or worsening adverse reactions. Patient previously mentioned itchiness without rash. Today, he has worsening itchiness particularly on his arms and chest. He takes Benadryl at night, but cannot take it during the day 2/2 the sedation associated with this medication. He tried to use a Benadryl topical spray, but it was sticky and did not seem to help. No rash noted on arms today. Suggested topical steroid but patient has already tried this as well without resolution. Decision made to try hydroxyzine PRN with patient aware of associated sedation with this medication as well. Will follow up at next visit. 08/10/21: After induction, Mr. Matias has iUPD and central study monitor has allowed randomization for which he was randomized to the nivo only arm. We will plan to re-scan in 3 months. 11/02/21: Mr. Smallwood remains in iUPD so will continue with nivolumab maintenance. 01/25/22: Patient does not report any toxicities and is doing well today. Will continue with nivolumab maintenance. Scan consistent with stable disease by radiologist review. 02/22/22: Mr. Smallwood Scr is up slightly (but within tx parameters as <1.5x baseline) so will give 1L of IVF with treatment today. 03/22/22: Continues to tolerate therapy well. Scr stable to improved. 05/19/22: Pt seen by MD. He reports itching but no rash. 1L NS bolus was given today for elevated creatinine (<1.5 x baseline). 08/09/22: Mr. Matias now has a rash that appears fungal - will Rx miconazole cream but will also Rx clobetasol cream for if there is no relief from antifungal as it may be immune-related. 10/04/22: Mr. Matias has progression of a pelvic met - he will be referred to radiation and continue nivolumab off study as SOC. 03/12/23: Unfortunately Mr. Matias has disease progression but he has enrolled in -76 and was randomized to the Nivo+Tivo arm. 05/10/23: Serum creatinine elevated but still within 1.5 x baseline. Will administer 1 L NS with treatment today. 07/13/23: Mr. Smallwood scans on 07/11 show no evidence of disease progression, and interval decrease in size of R pulmonary nodule. 10/08/23: Patient had a recent GI virus and Cr elevation. Improved today to within 1.5x baseline (~2) so will continue with therapy today. Magnesium replacement also being addressed. Levothyroxine has also been started. 11/02/23: SBP ~160 today but first time so will continue with therapy per MD and continue to monitor. 01/25/24: Mr. Reeses TSH is elevated but he reports not taking his levothyroxine; asked him to restart. 04/18/24: Scans are stable today. Okay to proceed with treatment. 06/23/24: Treatment was delayed, as patient was recently hospitalized with watery diarrhea, increasedostomy output. Infectious workup was negative. Tivozanib was held and symptoms slowly improved. Perstudy protocol, will implement a dose reduction for tivozanib to 0.89 mg every other day. 09/17/24: Mr. Reeses initial BP readings in clinic were elevated, but repeat measure in infusion >1H later came down to 148/76 mmHg without medical intervention. Discussed with Dr. Colin and ok to proceed with tivozanib as repeat measure within parameters per protocol. Confirmed that per patient, home BP readings remain controlled daily with readings 130's-140's/ 70's-80's. Given better control at home and relatively recent restart of amlodipine, will not prescribe additional antihypertensives today. If BP elevated again with C21, consider uptitration of amlodipine or losartan. 10/15/24: Mr. Matias has no complaints today. BP is appropriate today per study protocol and labs are otherwise stable to proceed with therapy. 11/21/24: Patient seen in clinic by [facility]. Home Blood Pressure readings have 1 reading >150/95, so will HOLD TIVOZANIB today and plan to continue with Nivolumab. Patient continued on losartan today for blood pressure, plan to follow up in 1 week with [facility] to check in on blood pressure readings at that time. 12/19/24: Patients blood pressure has been elevated in clinic, which would warrant a hold per study protocol. As patients disease has been well controlled with use of tivozanib, patient withdrawn fromstudy to continue with Tivozanib monotherapy. Losartan dose increased to assist with blood pressurecontrol. Patient ok to continue on treatment at this time. 01/02/25: Mr. Matias is doing well. BP in clinic today is elevated however, per patient report was 140/71 mmHg at home this morning. Okay to continue with tivozanib. 02/06/25: Patient reports he continues to tolerate treatment well. Blood pressure again elevated in clinic, brought home blood pressure log which shows home pressures consistently in the 140/70's range. Following with nephrology for pressure management. Patient states he is unable to stay for zometato due to scheduling reasons, so will reschedule for 02/13/25. 05/08/25: Patient continues to tolerate therapy with tivozanib. Blood pressure stable on todays reading, ok to continue on therapy at this time. 07/31/25: Mr. Matias will receive IVF bolus with his zoledronic acid today given mildly elevated K. Today's Wt: Wt Readings from Last 2 Encounters: 09/25/25 93.9 kg (207 lb) 08/28/25 97.2 kg (214 lb 4.6 oz) Dosing Wt: 85.1 kg Dosing Ht: 180.3 cm DosingBSA: 2.2 m2 Recent Labs: Lab Results Component Value Date WBC 6.55 09/25/2025 NEUTROABS 4.31 09/25/2025 HGB 12.4 (L) 09/25/2025 PLT 154 (L) 09/25/2025 Lab Results Component Value Date GLUCOSE 96 09/25/2025 NA 141 09/25/2025 CL 109 (H) 09/25/2025 K 4.0 09/25/2025 MG 1.8 (L) 12/19/2024 BUN 22 09/25/2025 CREATININE 2.72 (H) 09/25/2025 SCr baseline: 1.99mg/dL (05/11/21) Lab Results Component Value Date AST 22 09/25/2025 ALT 15 09/25/2025 ALKPHOS 101 09/25/2025 BILITOT 0.3 09/25/2025 Lab Results Component Value Date TSH 11.80 (H) 11/21/2024 Lab Results Component Value Date FREET4 1.1 11/21/2024 Lab Results Component Value Date URINEPRO 30 (A) 07/31/2025 Visit Vitals BP 135/79 Pulse 69 Temp 36.6 ??C (97.9 ??F) Treatment/Therapy Plan: Tivozanib 0.89 mg PO every other day [x] Tivozanib dose-reduced for grade 3 diarrhea Current Treatment Plan History: Tivozanib monotherapy initiated on 12/19/24 Prior Treatment History: Ipi/Nivo Cycle 1: 05/18/21 Cycle 2: 06/08/21 Cycle 3: 06/29/21 Cycle 4: 07/20/21 Nivo Maintenance Cycle 1: 08/10/21 Cycle 2: 09/07/21 Cycle 3: 10/05/21 Cycle 4: 11/02/21 Cycle 5: 11/30/21 Cycle 6: 12/28/21 Cycle 7: 01/25/22 Cycle 8: 02/22/22 Cycle 9: 03/22/22 Cycle 10: 04/19/22 Cycle 11: 05/19/22 Cycle 12: 06/14/22 Cycle 13: 07/12/22 Cycle 14: 08/09/22 Cycle 15: 09/06/22 Off study Nivolumab maintenance Cycle 16: 10/04/22 Cycle 17: 11/03/22 Cycle 18: 12/01/22 Cycle 19: 12/29/22 Cycle 20: 01/24/23 Nivo/Tivo Cycle 1: 03/12/23 Cycle 2: 04/11/23 Cycle 3: 05/10/23 Cycle 4: 06/15/23 Cycle 5: 07/13/23 Cycle 6: 08/10/23 Cycle 7: 09/07/23 Cycle 8: 10/08/23 Cycle 9: 11/02/23 Cycle 10: 11/30/23 Cycle 11: 12/28/23 Cycle 12: 01/25/24 Cycle 13: 02/22/24 Cycle 14: 03/21/24 Cycle 15: 04/18/24 Cycle 16: 05/15/24 Cycle 17: 06/23/24 (delayed for hospitalizaiton - tivozanib dose-reduced) Cycle 18: 07/23/24 Cycle 19: 08/20/24 Cycle 20: 09/17/24 Cycle 21: 10/15/24 Cycle 22: 11/21/24 (Tivozanib HELD for home BP reads) Plan: Rx (tivozanib) prescribed to: [facility] Refills will be due: January 2026 Patient will return to clinic in 8 weeks. Will follow-up at that time. Alma Ernst, VidalD Clinical Oncology Pharmacist documented in this encounter Plan of Treatment Upcoming Encounters Date Type Department Care Team (Late st Contact Info) Description 10/23/2025 2:00 PM EST Appointment [facility] [address] [place] [address] 12/23/2025 1:00 PM EST Office Visit [facility] Ne[facility] [address], [address] [place] [address] Ayden Sarmiento MD [address] [place] [address] 01/26/2026 1:30 PM EDT Office Visit [facility] [address], [address] [place] [address] Winston Rolle MD [address] [place] [address] Scheduled Orders Name Type Priority Associated Diagnoses Orde r Schedule Protein, Random, Urine with Creatinine Lab Routine Renal cell carcinoma of right kidney Expected: 09/25/2025 (Approximate), Expires: 03/29/2027 documented as of this encounter Results * (ABNORMAL) Comprehensive Metabolic Panel, Plasma (09/25/2025 2:07 PM EST) Glucose, Plasma 96 74 - 99 mg/dL 09/25/2025 3:[address] [facility] BUN, Plasma 22 8 - 23 mg/dL 09/25/2025 3:[address] [facility] Creatinine, Plasma 2.72(H) 0.70 - 1.20 mg/dL 09/25/2025 3:[address] [facility] BUN/Creatinine Ratio 8 09/25/2025 3:[address] [facility] Sodium, Plasma 141 136 - 145 mmol/L 09/25/2025 3:[address] [facility] Potassium, Plasma 4.0 3.6 - 4.9 mmol/L 09/25/2025 3:[address] [facility] Chloride, Plasma 109(H) 97 - 107 mmol/L 09/25/2025 3:[address] [facility] CO2, Plasma 20(L) 22 - 29 mmol/L 09/25/2025 3:[address] [facility] Anion Gap 12 6 - 16 mmol/L 09/25/2025 3:[address] [facility] Total Calcium, Plasma 8.5(L) 8.9 - 10.2 mg/dL 09/25/2025 3:[address] [facility] Total Protein 7.2 6.3 - 7.9 g/dL 09/25/2025 3:[address] [facility] Albumin, Plasma 4.0 3.5 - 5.2 g/dL 09/25/2025 3:[address] [facility] AST, Plasma 22 10 - 50 U/L 09/25/2025 3:[address] [facility] ALT, Plasma 15 10 - 50 U/L 09/25/2025 3:[address] [facility] Alkaline Phosphatase, Plasma 101 40 - 115 U/L 09/25/2025 3:[address] [facility] Total Bilirubin, Plasma 0.3 0.2 - 1.1 mg/dL 09/25/2025 3:[address] [facility] eGFRcr 23.0 mL/min/1.7 3m*2 09/25/2025 3:[address] [facility] Comment:Reported eGFRcr in m L/min/1.73m2 is based the CKD-EPI 2020 equation that does not use a race coefficient. Blood Venous blood specimen / Unknown Venipuncture / Unknown 09/25/2025 2:07 PM EST 09/25/2025 2:29 PM EST us Kwesi Colin MD LAB BLOOD ORDERABLES Final Resul t [facility] [address] [place] [address] * (ABNORMAL) CBC and Differential (09/25/2025 2:07 PM EST) [facility] Signature WBC Count 6.55 3.70 - 10.30 10*3/uL LAB HEMATOLOGY METHOD 09/25/2025 2:[address] [facility] RBC Count 3.92(L) 4.60 - 6.10 10*6/uL LAB HEMATOLOGY METHOD 09/25/2025 2:[address] [facility] HGB 12.4(L) 13.7 - 17.5 g/dL LAB HEMATOLOGY METHOD 09/25/2025 2:[address] [facility] HCT 39.2(L) 40.0 - 51.0 % LAB HEMATOLOGY METHOD 09/25/2025 2:[address] [facility] Platelet Count 154(L) 155 - 369 10*3/uL LAB HEMATOLOGY METHOD 09/25/2025 2:[address] [facility] MCV 100(H) 79 - 98 fL LAB HEMATOLOGY METHOD 09/25/2025 2:39 PM [facility] MCH 31.6 26.0 - 32.0 pg LAB HEMATOLOGY METHOD 09/25/2025 2:[address] [facility] MCHC 31.6 30.7 - 35.5 g/dL LAB HEMATOLOGY METHOD 09/25/2025 2:39 PM [facility] RDW 14.6(H) 11.5 - 14.5 % LAB HEMATOLOGY METHOD 09/25/2025 2:[address] [facility] MPV 9.8 8.8 - 12.5 fL LAB HEMATOLOGY METHOD 09/25/2025 2:39 PM [facility] nRBC 0.0 <=0.0 per 100 WBCs LAB HEMATOLOGY METHOD 09/25/2025 2:39 PM [facility] Differential Type Automated LAB HEMATOLOGY METHOD 09/25/2025 2:39 PM [facility] Neutrophils % 65 % LAB HEMATOLOGY METHOD 09/25/2025 2:39 PM [facility] Lymphocytes % 27 % LAB HEMATOLOGY METHOD 09/25/2025 2:[address] [facility] Monocytes % 6 % LAB HEMATOLOGY METHOD 09/25/2025 2:39 PM [facility] Eosinophils % 1 % LAB HEMATOLOGY METHOD 09/25/2025 2:[address] [facility] Basophils % 0 % LAB HEMATOLOGY METHOD 09/25/2025 2:[address] [facility] Immature Granulocytes % 1 % LAB HEMATOLOGY METHOD 09/25/2025 2:[address] [facility] Neutrophils Absolute 4.31 1.60 - 6.10 10*3/uL LAB HEMATOLOGY METHOD 09/25/2025 2:[address] [facility] Lymphocytes Absolute 1.79 1.20 - 3.90 10*3/uL LAB HEMATOLOGY METHOD 09/25/2025 2:[address] [facility] Monocytes Absolute 0.36 0.30 - 0.90 10*3/uL LAB HEMATOLOGY METHOD 09/25/2025 2:[address] [facility] Eosinophils Absolute 0.04 0.00 - 0.50 10*3/uL LAB HEMATOLOGY METHOD 09/25/2025 2:[address] [facility] Basophils Absolute 0.02 0.00 - 0.10 10*3/uL LAB HEMATOLOGY METHOD 09/25/2025 2:[address] [facility] Immature Granulocytes Absolute 0.03 0.00 - 0.06 10*3/uL LAB HEMATOLOGY METHOD 09/25/2025 2:[address] [facility] Blood Venous blood specimen / Unknown Venipuncture / Unknown 09/25/2025 2:07 PM EST 09/25/2025 2:[address] [facility] - 09/25/2025 2:39 PM EST Therapeutic decision making should be based on absolute values, rather than percentages. us Kwesi Colin MD LAB BLOOD ORDERABLES Final Resul t [facility] [address] [place] [address] documented in this encounter Visit Diagnoses Diagnosis Renal cell carcinoma of right kidney- Primary documented in this encounter Additional Health Concerns Assessment Noted Time A fall risk assessment has been complete d for the patient 09/25/2025 1:42 PM EST A Body Mass Index follow-up plan has been documented for the patient 08/20/2025 10:48 PM EDT documented as of this encounter Care Teams War[employer] Hand Relationship Specialty Start Date End Date Evelio Menezes MD [address] [place] [address] PCP - General 04/01/21 Kwesi Colin MD [address] [phone] Consulting Physician Medical Oncology 09/06/21 documented as of this encounter
--- OUTSIDE RECORDS SUMMARY | 2025-10-05 11:11 | XMS_ITS | Encounter Summary ---
Author Organization [facility] Address [address] 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 Name Role Phone Evelio Menezes MD Primary Care Provider [phone] Kwesi Colin MD Unavailable Reason for Visit * Imaging (Routine) - Closed Specialty Diagnoses / Procedures Referred By Carlos Alberto easton Referred To Contact Radiology Diagnoses Renal cell carcinoma of right kidney Procedures CT Chest wo IV Contrast CT Chest w IV Contrast Kwesi Colin MD [address] [address] Phone: tel: fax: Referral ID Status Reason Start Date Expiration Date Visits Re quested Visits Authorized [id number] Closed 09/25/2025 03/27/2027 1 1 Encounter Details Date Type Department Care Team (Latest Contact Info) Description 10/05/2025 11:11 AM EST - 10/05/2025 11:59 PM [facility] Hospital Encounter [facility] [address] [place] [address] Renal cell carcinoma of right kidney Discharge Disposition: Home or Self Care Social History Tobacco Use Types Packs/Day Years Used Date Smoking Tobacco: Never Passive Smoke Exposure: Never Smokeless Tobacco: Never Alcohol Use Standard Drinks/Week Comments No 0 [...] money to buy more. Never true 06/12/20 Within the past 12 months, t he [...] place to sleep or slept in a [facility] (including now)? No 06/12/2024 Utilities Answer Date [...] on file documented as of this encounter Medications at Time of Discharge atorvastatin (Lipitor) 20 MG tablet Take 1 tablet (20 mg) by mouth nightly. 0 cetirizine (ZyrTEC) 10 MG tablet Take 1 tablet (10 mg) by mouth every morning. 0 diphenhydrAMINE (Benadryl) 50 MG capsuleIndications: Renal cell carcinoma of right kidney Take once 1 hour prior to scan 1 capsule 5 docusate sodium (Colace) 100 MG capsule Take [...] needed for severe pain. 90 tablet 5 predniSONE (Deltasone) 50 MG tabletIndications:R enal cell carcinoma of right kidney Take 1 tablet 13 hours prior to scan. Take 1 tablet 7 hours prior to scan. Take 1 tablet 1 hour prior to scan. 3 tablet 5 prochlorperazine (Compazine) 10 MG tablet [...] into a venous catheter every 3 months. documented as of this encounter Miscellaneous Notes * Subha Hector - Catalina Melgar - 10/05/2025 11:22 AM EST Images from the original note were not included. 1639 Caring for Yourself after Contrast Imaging If you had ORAL contrast: ? You can go back to your normal diet and activities as tolerated. ? Drink plenty of fluids, unless told otherwise. If you had IV contrast: ? You can go back to your normal diet and activities as tolerated. ? Drink plenty of fluids, unless told otherwise. ? Leave a bandage on the site for 30 minutes (where the IV was inserted or blood was drawn). If you had Intravesical (bladder) contrast: ? Return to normal diet and activity. What you need to know about delayed reaction to IV contrast What is IV Contrast? ? Contrast is a dye that is put into your body through an IV. ? It is used for imaging scans such as CT scans and MRIs. ? The contrast makes blood vessels, organs and other parts of your body show up better on the scan. What do I need to do after IV contrast? ? Drink lots of fluids. This will help flush the contrast out of your system. ? Drink 2-3 extra glasses or bottles of water within 4 hours of your scan. What is a contrast reaction? ? A contrast reaction is a bad side effect from the contrast dye. ? It is rare but it does happen. ? They can be mild - such as sneezing, itching, or hives. ? They can be severe - such as trouble breathing, throat swelling, and irregular heart beat. When do these reactions happen? ? They often happen right after the contrast is injected. ? Some happen hours after going home. Go to the nearest Emergency Department right away if you have any of these symptoms after you leavethe clinic or hospital. ? Sneezing ? Itching in your mouth, throat, eyes, ears, or skin ? Rash or hives ? Throwing up or stomach sickness ? High heart rate or ?racing? of your heart ? Feeling dizzy or woozy ? Feeling short of breath or like you can?t take a deep breath ? Feeling very anxious for no other reason It is very important that these reactions be treated. Tell the doctor or nurse that you are having a reaction to IV contrast dye. Do not ignore any sign of a reaction! All reactions must be assessed by a doctor. Call 911 if you are alone and your reaction is more than mild sneezing or itching. If you have a mild reaction, call to speak with a Radiologist, explain that you havehad a contrast reaction, as this needs to be added to your medical record. documented in this encounter Plan of Treatment Upcoming Encounters Date Type Department Care Team ([facility] Contact Info) Description 10/23/2025 2:00 PM EST Appointment [facility] [address] [place] [address] 12/23/2025 1:00 PM EST Office Visit Professional [employer] [facility] [address], [address] [place] [address] Ayden Sarmiento MD [address] [place] [address] 01/26/2026 1:30 PM EDT Office Visit Medical Office [facility] [address], [address] [place] [address] Winston Rolle MD [address] [facility] [address] [place] [address] documented as of this encounter Procedures Procedure Name Priority Date/Time Associated Diagnosis Comments CT CHEST WO IV CONTRAST Routine 10/05/2025 12:42 PM EST Renal cell carcinoma of right kidney CT ABDOMEN PELVIS WO IV CONTRAST Routine 10/05/2025 12:42 PM EST Renal cell carcinoma of right kidney POCT CREATININE ISTAT UNSOLICITED RESULTS Routine 10/05/2025 11:39 AM EST documented in this encounter Results * CT Chest wo IV Contrast (10/05/2025 12:42 PM EST) Anatomical Region Laterality Modality Chest Computed Tomogra phy Impressions 10/05/2025 2:04 PM EST Chest: No evidence of disease progression. Unchanged mediastinal and hilar lymph nodes. Unchanged large expansile lytic lesion centered in the right scapula. Abdomen/Pelvis: No evidence of disease progression. 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 CRITICAL RESULT: No. COMMUNICATION: Per this written report. Drafted by Jeannine Platt MD on 10/05/2025 1:45 PM Final report signed by Jeannine Platt MD on 10/05/2025 2:04 PM Narrative 10/05/2025 2:04 PM EST CLINICAL INDICATION: Renal cell carcinoma TECHNIQUE: Multiple axial CT images were obtained from thoracic inlet through pubic symphysis without the administration of IV contrast. Reformatted images of the abdomen and pelvis in the coronal and sagittal planes were generated from the axial data set to facilitate diagnostic accuracy. Total DLP (Dose-Length Product): 619.64 mGy.cm (accession [id number]), 619.64 mGy.cm (accession [id number]). Please note: The reported value represents the total of one or more individual components during the CT acquisition on this date and at this time, and as such, the same value may appear in more than one CT report depending on the interpreting/reporting physicians. COMPARISON: CT chest/abdomen/pelvis from 06/02/2025 FINDINGS: Chest: Lymph Nodes and Mediastinum: Unchanged right lower paratracheal lymph node, measuring 12 mm (series 4 image 166). Unchanged right hilar lymph node measuring 16 mm (series 4 image 197). No enlarging thoracic lymph nodes. No mediastinal mass lesions. No suspicious thyroid findings. Cardiovascular: The heart and thoracic great vessels are normal in caliber. Coronary artery calcifications. Lungs and Pleura: Central airways are patent. Bibasilar atelectasis and/or scarring. No sizable or suspicious lung nodules to suggest metastatic disease. Small right and trace left pleural effusion, similar to comparison. Musculoskeletal and Body Wall: Large expansile lytic lesion centered in the right scapula, measuring approximately 6.2 cm, unchanged when measured in the same plane (series 4 image 82). No suspicious body wall findings. Abdomen/Pelvis: Solid Abdominal Organs: Liver contour is smooth. No suspicious hepatic mass within the confines of a noncontrast examination. Gallbladder is decompressed and not well evaluated. No intrahepatic or extrahepatic biliary ductal dilatation. Adrenal glands are unremarkable. Pancreatic parenchyma is homogeneous. No pancreatic ductal dilatation. The spleen is nonenlarged. Postoperative change associated with prior right nephrectomy. No suspicious soft tissue within the nephrectomy bed. No suspicious contour deforming lesion of the left kidney within the confines of a noncontrast examination. Possible small left parapelvic cysts. Mild left pelviectasis. GI Tract/Mesentery/Peritoneum: Stomach is unremarkable. Postoperative change associated with prior partial left hemicolectomy, with colostomy in the left lower quadrant and no evidence of parastomal complication. Residual bowel maintains normal caliber and contour. No bowel obstruction. No suspicious mesenteric or peritoneal findings. Pelvic Viscera: Urinary bladder is unremarkable. Mild stranding and soft tissue thickening within the presacral region is similar to comparison and may be associated with instrumentation. No suspicious pelvic mass. Lymph Nodes/Vasculature: No lymphadenopathy by CT size criteria. Aorta and IVC maintain normal caliber and contour. Free Fluid: Trace pelvic fluid, reduced from comparison. Musculoskeletal and Body Wall: Postoperative change within the anterior abdominal wall. Left lower quadrant ostomy. Large expansile lytic lesion in the left hemipelvis at the level of the left sacroiliac joint with soft tissue component extending into the left gluteus musculature and iliopsoas, measuring approximately 5.5 x 4.7 cm (previously 6.4 x 3.0 cm, with interval change in size possibly associated with change in positioning, series 3 image 190). An additional cluster of lytic lesions overlying the left acetabulum appears similar to comparison, with the largest lesion measuring approximately 4.3 cm (series 3 image 233). Procedure Note Jeannine Platt MD - 10/05/2025 CLINICAL INDICATION: Renal cell carcinoma TECHNIQUE: Multiple axial CT images were obtained from thoracic inlet through pubicsymphysis without the administration of IV contrast. Reformatted images ofthe abdomen and pelvis in the coronal and sagittal planes were generatedfrom the axial data set to facilitate diagnostic accuracy. Total DLP (Dose-Length Product): 619.64 mGy.cm (accession [id number]),619.64 mGy.cm (accession [id number]). Please note: The reported valuerepresents the total of one or more individual components during the CTacquisition on this date and at this time, and as such, the same value mayappear in more than one CT report depending on the interpreting/reportingphysicians. COMPARISON: CT chest/abdomen/pelvis from 06/02/2025 FINDINGS: Chest: Lymph Nodes and Mediastinum: Unchanged right lower paratracheal lymphnode, measuring 12 mm (series 4 image 166). Unchanged right hilar lymphnode measuring 16 mm (series 4 image 197). No enlarging thoracic lymphnodes. No mediastinal mass lesions. No suspicious thyroid findings. Cardiovascular: The heart and thoracic great vessels are normal incaliber. Coronary artery calcifications. Lungs and Pleura: Central airways are patent. Bibasilar atelectasis and/orscarring. No sizable or suspicious lung nodules to suggest metastaticdisease. Small right and trace left pleural effusion, similar tocomparison. Musculoskeletal and Body Wall: Large expansile lytic lesion centered inthe right scapula, measuring approximately 6.2 cm, unchanged when measuredin the same plane (series 4 image 82). No suspicious body wall findings. Abdomen/Pelvis: Solid Abdominal Organs: Liver contour is smooth. No suspicious hepaticmass within the confines of a noncontrast examination. Gallbladder isdecompressed and not well evaluated. No intrahepatic or extrahepaticbiliary ductal dilatation. Adrenal glands are unremarkable. Pancreaticparenchyma is homogeneous. No pancreatic ductal dilatation. The spleen isnonenlarged. Postoperative change associated with prior right nephrectomy. Nosuspicious soft tissue within the nephrectomy bed. No suspicious contourdeforming lesion of the left kidney within the confines of a noncontrastexamination. Possible small left parapelvic cysts. Mild leftpelviectasis. GI Tract/Mesentery/Peritoneum: Stomach is unremarkable. Postoperativechange associated with prior partial left hemicolectomy, with colostomy inthe left lower quadrant and no evidence of parastomal complication.Residual bowel maintains normal caliber and contour. No bowel obstruction.No suspicious mesenteric or peritoneal findings. Pelvic Viscera: Urinary bladder is unremarkable. Mild stranding and softtissue thickening within the presacral region is similar to comparison andmay be associated with instrumentation. No suspicious pelvic mass. Lymph Nodes/Vasculature: No lymphadenopathy by CT size criteria. Aorta andIVC maintain normal caliber and contour. Free Fluid: Trace pelvic fluid, reduced from comparison. Musculoskeletal and Body Wall: Postoperative change within the anteriorabdominal wall. Left lower quadrant ostomy. Large expansile lytic lesionin the left hemipelvis at the level of the left sacroiliac joint with softtissue component extending into the left gluteus musculature andiliopsoas, measuring approximately 5.5 x 4.7 cm (previously 6.4 x 3.0 cm,with interval change in size possibly associated with change inpositioning, series 3 image 190). An additional cluster of lytic lesionsoverlying the left acetabulum appears similar to comparison, with thelargest lesion measuring approximately 4.3 cm (series 3 image 233). IMPRESSION: Chest: No evidence of disease progression. Unchanged mediastinal and hilar lymph nodes. Unchanged large expansile lytic lesion centered in the right scapula. Abdomen/Pelvis: No evidence of disease progression. Unchanged multifocal osseous metastatic disease involving the lefthemipelvis with extension into the adjacent musculature, as above. CRITICAL RESULT: No. COMMUNICATION: Per this written report. Drafted by Jeannine Platt MD on 10/05/2025 1:45 PM Final report signed by Jeannine Platt MD on 10/05/2025 2:04 PM Kwesi Colin MD IMG CT PROCEDURES Final Result * CT Abdomen Pelvis wo IV Contrast (10/05/2025 12:42 PM EST) Anatomical Region Laterality Modality Abdomen, Pelvis Computed Tomogra phy Impressions 10/05/2025 2:04 PM EST Chest: No evidence of disease progression. Unchanged mediastinal and hilar lymph nodes. Unchanged large expansile lytic lesion centered in the right scapula. Abdomen/Pelvis: No evidence of disease progression. 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 CRITICAL RESULT: No. COMMUNICATION: Per this written report. Drafted by Jeannine Platt MD on 10/05/2025 1:45 PM Final report signed by Jeannine Platt MD on 10/05/2025 2:04 PM Narrative 10/05/2025 2:04 PM EST CLINICAL INDICATION: Renal cell carcinoma TECHNIQUE: Multiple axial CT images were obtained from thoracic inlet through pubic symphysis without the administration of IV contrast. Reformatted images of the abdomen and pelvis in the coronal and sagittal planes were generated from the axial data set to facilitate diagnostic accuracy. Total DLP (Dose-Length Product): 619.64 mGy.cm (accession [id number]), 619.64 mGy.cm (accession [id number]). Please note: The reported value represents the total of one or more individual components during the CT acquisition on this date and at this time, and as such, the same value may appear in more than one CT report depending on the interpreting/reporting physicians. COMPARISON: CT chest/abdomen/pelvis from 06/02/2025 FINDINGS: Chest: Lymph Nodes and Mediastinum: Unchanged right lower paratracheal lymph node, measuring 12 mm (series 4 image 166). Unchanged right hilar lymph node measuring 16 mm (series 4 image 197). No enlarging thoracic lymph nodes. No mediastinal mass lesions. No suspicious thyroid findings. Cardiovascular: The heart and thoracic great vessels are normal in caliber. Coronary artery calcifications. Lungs and Pleura: Central airways are patent. Bibasilar atelectasis and/or scarring. No sizable or suspicious lung nodules to suggest metastatic disease. Small right and trace left pleural effusion, similar to comparison. Musculoskeletal and Body Wall: Large expansile lytic lesion centered in the right scapula, measuring approximately 6.2 cm, unchanged when measured in the same plane (series 4 image 82). No suspicious body wall findings. Abdomen/Pelvis: Solid Abdominal Organs: Liver contour is smooth. No suspicious hepatic mass within the confines of a noncontrast examination. Gallbladder is decompressed and not well evaluated. No intrahepatic or extrahepatic biliary ductal dilatation. Adrenal glands are unremarkable. Pancreatic parenchyma is homogeneous. No pancreatic ductal dilatation. The spleen is nonenlarged. Postoperative change associated with prior right nephrectomy. No suspicious soft tissue within the nephrectomy bed. No suspicious contour deforming lesion of the left kidney within the confines of a noncontrast examination. Possible small left parapelvic cysts. Mild left pelviectasis. GI Tract/Mesentery/Peritoneum: Stomach is unremarkable. Postoperative change associated with prior partial left hemicolectomy, with colostomy in the left lower quadrant and no evidence of parastomal complication. Residual bowel maintains normal caliber and contour. No bowel obstruction. No suspicious mesenteric or peritoneal findings. Pelvic Viscera: Urinary bladder is unremarkable. Mild stranding and soft tissue thickening within the presacral region is similar to comparison and may be associated with instrumentation. No suspicious pelvic mass. Lymph Nodes/Vasculature: No lymphadenopathy by CT size criteria. Aorta and IVC maintain normal caliber and contour. Free Fluid: Trace pelvic fluid, reduced from comparison. Musculoskeletal and Body Wall: Postoperative change within the anterior abdominal wall. Left lower quadrant ostomy. Large expansile lytic lesion in the left hemipelvis at the level of the left sacroiliac joint with soft tissue component extending into the left gluteus musculature and iliopsoas, measuring approximately 5.5 x 4.7 cm (previously 6.4 x 3.0 cm, with interval change in size possibly associated with change in positioning, series 3 image 190). An additional cluster of lytic lesions overlying the left acetabulum appears similar to comparison, with the largest lesion measuring approximately 4.3 cm (series 3 image 233). Procedure Note Jeannine Platt MD - 10/05/2025 CLINICAL INDICATION: Renal cell carcinoma TECHNIQUE: Multiple axial CT images were obtained from thoracic inlet through pubicsymphysis without the administration of IV contrast. Reformatted images ofthe abdomen and pelvis in the coronal and sagittal planes were generatedfrom the axial data set to facilitate diagnostic accuracy. Total DLP (Dose-Length Product): 619.64 mGy.cm (accession [id number]),619.64 mGy.cm (accession [id number]). Please note: The reported valuerepresents the total of one or more individual components during the CTacquisition on this date and at this time, and as such, the same value mayappear in more than one CT report depending on the interpreting/reportingphysicians. COMPARISON: CT chest/abdomen/pelvis from 06/02/2025 FINDINGS: Chest: Lymph Nodes and Mediastinum: Unchanged right lower paratracheal lymphnode, measuring 12 mm (series 4 image 166). Unchanged right hilar lymphnode measuring 16 mm (series 4 image 197). No enlarging thoracic lymphnodes. No mediastinal mass lesions. No suspicious thyroid findings. Cardiovascular: The heart and thoracic great vessels are normal incaliber. Coronary artery calcifications. Lungs and Pleura: Central airways are patent. Bibasilar atelectasis and/orscarring. No sizable or suspicious lung nodules to suggest metastaticdisease. Small right and trace left pleural effusion, similar tocomparison. Musculoskeletal and Body Wall: Large expansile lytic lesion centered inthe right scapula, measuring approximately 6.2 cm, unchanged when measuredin the same plane (series 4 image 82). No suspicious body wall findings. Abdomen/Pelvis: Solid Abdominal Organs: Liver contour is smooth. No suspicious hepaticmass within the confines of a noncontrast examination. Gallbladder isdecompressed and not well evaluated. No intrahepatic or extrahepaticbiliary ductal dilatation. Adrenal glands are unremarkable. Pancreaticparenchyma is homogeneous. No pancreatic ductal dilatation. The spleen isnonenlarged. Postoperative change associated with prior right nephrectomy. Nosuspicious soft tissue within the nephrectomy bed. No suspicious contourdeforming lesion of the left kidney within the confines of a noncontrastexamination. Possible small left parapelvic cysts. Mild leftpelviectasis. GI Tract/Mesentery/Peritoneum: Stomach is unremarkable. Postoperativechange associated with prior partial left hemicolectomy, with colostomy inthe left lower quadrant and no evidence of parastomal complication.Residual bowel maintains normal caliber and contour. No bowel obstruction.No suspicious mesenteric or peritoneal findings. Pelvic Viscera: Urinary bladder is unremarkable. Mild stranding and softtissue thickening within the presacral region is similar to comparison andmay be associated with instrumentation. No suspicious pelvic mass. Lymph Nodes/Vasculature: No lymphadenopathy by CT size criteria. Aorta andIVC maintain normal caliber and contour. Free Fluid: Trace pelvic fluid, reduced from comparison. Musculoskeletal and Body Wall: Postoperative change within the anteriorabdominal wall. Left lower quadrant ostomy. Large expansile lytic lesionin the left hemipelvis at the level of the left sacroiliac joint with softtissue component extending into the left gluteus musculature andiliopsoas, measuring approximately 5.5 x 4.7 cm (previously 6.4 x 3.0 cm,with interval change in size possibly associated with change inpositioning, series 3 image 190). An additional cluster of lytic lesionsoverlying the left acetabulum appears similar to comparison, with thelargest lesion measuring approximately 4.3 cm (series 3 image 233). IMPRESSION: Chest: No evidence of disease progression. Unchanged mediastinal and hilar lymph nodes. Unchanged large expansile lytic lesion centered in the right scapula. Abdomen/Pelvis: No evidence of disease progression. Unchanged multifocal osseous metastatic disease involving the lefthemipelvis with extension into the adjacent musculature, as above. CRITICAL RESULT: No. COMMUNICATION: Per this written report. Drafted by Jeannine Platt MD on 10/05/2025 1:45 PM Final report signed by Jeannine Platt MD on 10/05/2025 2:04 PM Kwesi Colin MD IM CT PROCEDURES Final Result * (ABNORMAL) POCT creatinine (10/05/2025 11:39 AM EST) Creatinine, Point of Care 2.7(H) 0.7 - 1.2 mg/dL 10/05/2025 11:43 AM EST [facility] POCT eGFR 23 mL/min/1. 73m*2 10/05/2025 11:43 AM EST [facility] Locomotive Operator Helper ID Pham Russell 10/05/2025 11:43 AM EST [facility] Device ID [id number] 10/05/2025 11:43 AM EST [facility] Comment 10/05/2025 11:43 AM EST [facility] Comment:Testing performed on i-STAT at the point of care. Reported eGFRcr in mL/min/1.73m2 is based the CKD-EPI 2020 equation that does not use a race coefficient. Blood Venous blood specimen / Unknown 10/05/2025 11:39 AM EST 10/05/2025 11:43 AM EST us Generic Provider Poct LAB POINT OF CARE TEST DOCKED DEVICE UNSOLICITED RESULTS Final Result [facility] [address] [facility] [address] [place] [address] documented in this encounter Visit Diagnoses Diagnosis Renal cell carcinoma of right kidney documented in this encounter Administered Medications Inactive Administered Medications - up to 3 most recent administrations Medication Order MAR Action Action Date Dose Rate Site iohexol (OMNIPaque) 9 MG/ML oral contrast 500 mL 500 mL, Oral, Once in imaging, 1 dose, Starting on Sun10/05/25 at 1122, Until Sun10/05/25 at 1244, Routine, Imaging Protocol Orders Given 10/05/2025 12:44 PM EST 500 mL documented in this encounter Additional Health Concerns Assessment Noted Time A fall risk assessment has been complete d for the patient 09/25/2025 1:42 PM EST A Body Mass Index follow-up plan has been documented for the patient 08/20/2025 10:48 PM EDT documented as of this encounter Care Teams Lumber Tying Machine Operator Relationship Specialty Start Date End Date Evelio Menezes MD [address] [place], [place] [id number] PCP - General 04/01/21 Kwesi Colin MD 800 [facility] Val [facility] [address] [place] [address] Consulting Physician Medical Oncology 09/06/21 documented as of this encounter
--- OUTSIDE RECORDS SUMMARY | 2025-10-12 14:01 | XMS_ITS | Encounter Summary ---
Author Organization [facility] Address [address] [place] [address] Care Team Providers Care Supervisor Stitching Department Name Role Phone Evelio Menezes MD Primary Care Provider [phone] Kwesi Colin MD Unavailable Encounter Details Date Type Department Care Team ([facility] Contact Info) Description 09/28/2025 Telephone [facility] [address] [place] [address] Kwesi Colin MD [address] [address] Social History Tobacco Use Types Packs/Day Years [...] place to sleep or slept in a custodial (including now)? No 06/12/2024 Utilities Answer Date [...] on file documented as of this encounter Miscellaneous Notes * Telephone Encounter - Van Vo Raquel - 09/28/2025 9:44 AM EST Patient Phone Message Reason for Call: pt will not be able to make it to his CT appt on 10/02 he will need It to be R/S Best contact number and optimal time of day to reach caller: [phone] Crystal Note: Please do not reply to this message. Follow-up communication and further actions as a result of this message need to be communicated with the patient directly, if the patient is not active onMyChart. If the patient is active on MyChart, they will receive notification of the communication/outcome via MyChart. documented in this encounter Plan of Treatment Upcoming Encounters Date Type Department Care Team ([facility] [place] st Contact Info) Description 10/23/2025 2:00 PM EST Appointment [facility] 2 [address] [place] [address] 12/23/2025 1:00 PM EST Office Visit [facility] Nephrology, Bone & Mineral Metabolism [address] [facility], [address] [place] [address] Ayden Sarmiento MD [address] [place] [address] 01/26/2026 1:30 PM EDT Office Visit Medical Office Building [facility] [address] [facility], [address] [place] [address] Winston Rolle MD [address] [facility] 201 [place] [address] documented as of this encounter Visit Diagnoses Not on filedocumented in this encounter Additional Health Concerns Assessment Noted Time A fall risk assessment has been complete d for the patient 09/25/2025 1:42 PM EST A Body Mass Index follow-up plan has been documented for the patient 08/20/2025 10:48 PM EDT documented as of this encounter Care Teams Supervisor Stitching Department Relationship Specialty Start Date End Date Evelio Menezes MD [address] [place] [address] PCP - General 04/01/21 Kwesi Colin MD 800 [facility] [address] [place] [address] Consulting Physician Medical Oncology 09/06/21 documented as of this encounter
--- OUTSIDE RECORDS SUMMARY | 2025-10-12 14:01 | XMS_ITS | Clinical Summary ---
Author Organization [employer] ([place], [place], [place], [place], [place]) Address [address] [place] [address] Care Team Providers Care Alpine Guide Name Role Phone Roseline Payne Primary Care Provider Social History Tobacco Use Types Packs/Day Years Used Date Smoking Tobacco: Never Assessed Sex and Gender Information Value Date Recorded Sex Assigned at Not on file Legal Sex Male 5:25 PM CDT Gender Identity Not on file Sexual Orientation Not on file Plan of Treatment Health Maintenance Due Date Last Done Comments Depression Screening (12+) 1957 Tobacco Cessation Counseling and Screening (12+) 1958 DTAP/TDAP/TD VACCINES (1 - Tdap) 1965 Pneumococcal 50+ years (1 of 1 - PCV) 1996 Shingles Vaccine (Zoster) (1 of 2) 1996 Respiratory Syncytial Virus (RSV) Adult or (1 - 1-dose 75+ series) 2021 Falls Risk Screening 11/19/2024 COVID-19 VACCINE ( - 2024- season) 2025 10/20/2021, 01/20/2021, 12/23/2020 Influenza Vaccine (#1) 2025 Insurance MEDICARE PART A B [facility] [place] [id number] Care Teams Alpine Guide Relationship Specialty Start Date End Date Roseline Payne PA [address] [place] [phone] PCP - General Physician Optical Brightener Maker Helper 05/01/23
--- OUTSIDE RECORDS SUMMARY | 2025-10-12 14:01 | XMS_ITS | Encounter Summary ---
Author Organization [facility] Address [address] [place] [address] Care Team Providers Care Rehabilitation Manager Name Role Phone Evelio Menezes MD Primary Care Provider [phone] Kwesi Colin MD Unavailable Encounter Details Date Type Department Care Team ([facility] st Contact Info) Description 10/02/2025 Orders Only [facility] [address] [place] [address] Lizzie Contreras, RN [facility] None Social History Tobacco Use Types Packs/Day Years [...] place to sleep or slept in a correction (including now)? No 06/12/2024 Utilities Answer Date [...] on file documented as of this encounter Plan of Treatment Upcoming Encounters Date Type Department Care Team ([facility] st Contact Info) Description 10/23/2025 2:00 PM EST Appointment [facility] 2 [address] [place] [address] 12/23/2025 1:00 PM EST [facility] Nephrology, Bone & Mineral Metabolism [address] [facility], [facility] [address] [place] [address] Ayden Sarmiento MD [address] [place] [address] 01/26/2026 1:30 PM EDT Office Visit Medical Office Building Surgery Sp[facility] [address] [facility] [facility], [address] [place] [address] Winston Rolle MD [address] [place] [address] documented as of this encounter Visit Diagnoses Not on filedocumented in this encounter Additional Health Concerns Assessment Noted Time A fall risk assessment has been complete d for the patient 09/25/2025 1:42 PM EST A Body Mass Index follow-up plan has been documented for the patient 08/20/2025 10:48 PM EDT documented as of this encounter Care Teams Rehabilitation Manager Relationship Specialty Start Date End Date Evelio Menezes MD [address] [place] [address] PCP - General 04/01/21 Kwesi Colin MD 800 [facility] [address] [place] [address] Consulting Physician Medical Oncology 09/06/21 documented as of this encounter
--- OUTSIDE RECORDS SUMMARY | 2025-10-12 14:01 | XMS_ITS | Encounter Summary ---
Author Organization [facility] Address [address] [place] [address] Care Team Providers Care Print Project Manager Name Role Phone Evelio Menezes MD Primary Care Provider [phone] Kwesi Colin MD Unavailable Encounter Details Date Type Department Care Team ([facility] st Contact Info) Description 09/25/2025 Orders Only [facility] [address] [place] [address] Kwesi Colin MD 800 [facility] 134 [place] [address] Renal cell carcinoma of right kidney [...] place to sleep or slept in a residential (including now)? No 06/12/2024 Utilities Answer Date [...] EST Appointment [facility] 2 [address] [place] [address] 12/23/2025 1:00 PM EST [facility] Visit [facility] Nephrology, Bone & Mineral Metabolism [address] [facility], [address] [place] [address] Ayden Sarmiento MD [address] [place] [address] 01/26/2026 1:30 PM EDT Office Visit Medical Office Building [facility] [address] [facility], [address] [place] [address] Winston Rolel MD [address] [place] [address] documented as of this encounter Visit Diagnoses Diagnosis Renal cell carcinoma of right kidney- Primary documented in this encounter Additional Health Concerns Assessment Noted Time A fall risk assessment has been complete d for the patient 09/25/2025 1:42 PM EST A Body Mass Index follow-up plan has been documented for the patient 08/20/2025 10:48 PM EDT documented as of this encounter Care Teams Print Project Manager Relationship Specialty Start Date End Date Evelio Menezes MD [address] [place] [address] PCP - General 04/01/21 Kwesi Colin MD 800 [facility] 134 [place] [address] Consulting Physician Medical Oncology 09/06/21 documented as of this encounter
--- OUTSIDE RECORDS SUMMARY | 2025-10-12 14:01 | XMS_ITS | Encounter Summary ---
Author Organization [facility] Address [address] [place] [address] Care Team Providers Care Classroom Aide Name Role Phone Evelio Menezes MD Primary Care Provider [phone] Kwesi Colin MD Unavailable Reason for Visit * Reason Onset Date Comments Med Refill 10/02/2025 Encounter Details Date Type Department Care Team (Late st Contact Info) Description 10/02/2025 Refill [facility] [address] [place] [address] Lizzie Contreras, RN [facility] None Renal cell carcinoma of right kidney Social History Tobacco Use Types Packs/Day Years [...] place to sleep or slept in a half-way (including now)? No 06/12/2024 Utilities Answer Date [...] EST Appointment [facility] 2 [address] [place] [address] 12/23/2025 1:00 PM EST Office Visit [facility] Nephrology, Bone [facility] Mineral Metabolism [address] [facility], [address] [place] [address] Ayden Sarmiento MD 800 [place] [address] 01/26/2026 1:30 PM EDT Office Visit Medical Office Building Surgery Sp[facility] [address] [facility], [address] [place] [address] Winston Rolle MD [address] [place] [address] documented as of this encounter Visit Diagnoses Diagnosis Renal cell carcinoma of right kidney documented in this encounter Additional Health Concerns Assessment Noted Time A fall risk assessment has been complete d for the patient 09/25/2025 1:42 PM EST A Body Mass Index follow-up plan has been documented for the patient 08/20/2025 10:48 PM EDT documented as of this encounter Care Teams Classroom Aide Relationship Specialty Start Date End Date Evelio Menezes MD [address] [place] [address] PCP - General 04/01/21 Kwesi Colin MD 800 [facility] 134 [place] [address] Consulting Physician Medical Oncology 09/06/21 documented as of this encounter
--- OUTSIDE RECORDS SUMMARY | 2025-10-12 14:01 | XMS_ITS | Encounter Summary ---
Author Organization [facility] Address [address] [place] [address] Care Team Providers Care Blood Bank Coordinator Name Role Phone Evelio Menezes MD Primary Care Provider [phone] Kwesi Colin MD Unavailable Encounter Details Date Type Department Care Team ([facility] st Contact Info) Description 10/06/2025 Orders Only [facility] [address] [place] [address] Kwesi Colin MD 800 [facility] [address] [place] [address] Renal cell carcinoma of right [...] place to sleep or slept in a snf (including now)? No 06/12/2024 Utilities Answer Date [...] EST Appointment [facility] 2 [address] [place] [address] 12/23/2025 1:00 PM EST [facility] Visit [facility] Nephrology, Bone & Mineral Metabolism [address] [facility], [address] [place] [address] Ayden Sarmiento MD 800 [place] [address] 01/26/2026 1:30 PM EDT Office Visit Medical Office Building Surgery Sp[facility] [address] [facility], [address] [place] [address] Winston Rolle MD 125 [address] [facility] 201 [place] [address] Scheduled Orders Name Type Priority Associated Diagnoses Orde r Schedule Protein, Random, Urine with Creatinine Lab Routine Renal cell carcinoma of right kidney Expected: 10/06/2025 (Approximate), Expires: 04/09/2027 Albumin-creatinine ratio, urine, random Lab Routine Renal cell carcinoma of right kidney Expected: 10/06/2025 (Approximate), Expires: 04/09/2027 documented as of this encounter Visit Diagnoses Diagnosis Renal cell carcinoma of right kidney- Primary documented in this encounter Additional Health Concerns Assessment Noted Time A fall risk assessment has been complete d for the patient 09/25/2025 1:42 PM EST A Body Mass Index follow-up plan has been documented for the patient 08/20/2025 10:48 PM EDT documented as of this encounter Care Teams Blood Bank Coordinator Relationship Specialty Start Date End Date Evelio Menezes MD [address] [place], [place] [id number] PCP - General 04/01/21 Kwesi Colin MD [address] [place] [address] [facility] [address] [place] [address] Consulting Physician Medical Oncology 09/06/21 documented as of this encounter
--- OUTSIDE RECORDS SUMMARY | 2025-10-12 14:01 | XMS_ITS | Encounter Summary ---
Author Organization [facility] Address [address] [place] [address] Care Team Providers Care Defective Cigarette Slitter Name Role Phone Evelio Menezes MD Primary Care Provider Kwesi Colin MD Unavailable Encounter Details Date Type Department Care Team ([facility] Contact Info) Description 10/05/2025 Telephone [facility] [address] [place] [address] Kwesi Colin MD [address] [address] Social History Tobacco Use Types [...] encounter Miscellaneous Notes * Telephone Encounter - Anaya Dolan E - 10/05/2025 12:00 PM EST Patient Phone Message Reason for Call: Pham is calling from [facility]. Patient had bad labs and is wanting to speak with Dr. Huang nurseas patient is there right now. The GFR was below 30, his is 23. They need permission to give him the contrast. Best contact number and optimal time of day to reach caller: [phone] Note: Please do not reply to this [...] Upcoming Encounters Date Type Department Care Team ([facility] st Contact Info) Description 10/23/2025 2:00 PM EST Appointment [facility] 2 [address] [place] [address] 12/23/2025 1:00 PM EST Office Visit [facility] Nephrology, Bone & Mineral Metabolism [address] [facility], [address] [place] [address] Ayden Sarmiento MD 800 [place] [address] 01/26/2026 1:30 PM EDT Office Visit Medical Office Building Surgery [facility] [address] [facility], [address] [place] [address] Winston Rolle MD [address] [facility] 201 [place] [address] documented as of this encounter Visit Diagnoses Not on filedocumented in this encounter Additional Health Concerns Assessment Noted Time A fall risk assessment has been complete d for the patient 09/25/2025 1:42 PM EST A Body Mass Index follow-up plan has been documented for the patient 08/20/2025 10:48 PM EDT documented as of this encounter Care Teams Defective Cigarette Slitter Relationship Specialty Start Date End Date Evelio Menezes MD [address] [place], [place] [phone] PCP - General 04/01/21 Kwesi Colin MD 800 [facility] Val [facility] [address] [place] [address] Consulting Physician Medical Oncology 09/06/21 documented as of this encounter
--- OUTSIDE RECORDS SUMMARY | 2025-10-12 14:01 | XMS_ITS | Encounter Summary ---
Author Organization [facility] Address [address] [place] [address] Care Team Providers Care Underground Utility Locator Name Role Phone Evelio Menezes MD Primary Care Provider [phone] Kwesi Colin MD Unavailable Encounter Details Date Type Department Care Team (Latest Contact Info) Description 10/05/2025 Travel Social History Tobacco Use Types Packs/Day Years [...] place to sleep or slept in a usp (including now)? No 06/12/2024 Utilities Answer Date [...] Info) Description 10/23/2025 2:00 PM EST [facility]ointment [facility] 2 [address] [place] [address] 12/23/2025 1:00 PM EST Office Visit [facility] Nephrology, Bone & Mineral Metabolism [address] [facility], [address] [place] [address] Ayden Sarmiento MD [address] [place] [address] 01/26/2026 1:30 PM EDT Office Visit Medical Office Building Surgery Spine & Joint [address] [facility], [address] [place] [address] Winston Rolle MD [address] [facility] 201 [place] [address] documented as of this encounter Visit Diagnoses Not on filedocumented in this encounter Additional Health Concerns Assessment Noted Time A fall risk assessment has been complete d for the patient 09/25/2025 1:42 PM EST A Body Mass Index follow-up plan has been documented for the patient 08/20/2025 10:48 PM EDT documented as of this encounter Care Teams Underground Utility Locator Relationship Specialty Start Date End Date Evelio Menezes MD [address] [place] [address] PCP - General 04/01/21 Kwesi Colin MD 800 [facility] [address] [place] [address] Consulting Physician Medical Oncology 09/06/21 documented as of this encounter
--- OUTSIDE RECORDS SUMMARY | 2025-10-12 14:01 | XMS_ITS | Encounter Summary ---
Author Organization [facility] Address [address] [place] [address] Care Team Providers Care Family Consumer Science Teacher Name Role Phone Evelio Menezes MD Primary Care Provider [phone] Kwesi Colin MD Unavailable Encounter Details Date Type Department Care Team (Late st Contact Info) Description 10/02/2025 Telephone [facility] A Radiology [address] [place] [address] Xena Galvan, RN [facility]ST[facility] RADIOLOGY None Social History Tobacco Use Types Packs/Day [...] place to sleep or slept in a group home (including now)? No 06/12/2024 Utilities Answer Date [...] EST Appointment [facility] 2 [address] [place] [address] 12/23/2025 1:00 PM EST [facility] Visit [facility], Bone [facility] Mineral Metabolism [address] [facility], [address] [place] [address] Ayden Sarmiento MD [address] [place] [address] 01/26/2026 1:30 PM EDT Office Visit Medical Office Building Surgery Spine & Joint [address] [facility], [address] [place] [address] Winston Rolle MD [address] [place] [address] [place] [address] documented as of this encounter Visit Diagnoses Not on filedocumented in this encounter Additional Health Concerns Assessment Noted Time A fall risk assessment has been complete d for the patient 09/25/2025 1:42 PM EST A Body Mass Index follow-up plan has been documented for the patient 08/20/2025 10:48 PM EDT documented as of this encounter Care Teams Family Consumer Science Teacher Relationship Specialty Start Date End Date Evelio Menezes MD 2 [place] [address] PCP - General 04/01/21 Kwesi Colin MD 800 [facility] 134 [place] [address] Consulting Physician Medical Oncology 09/06/21 documented as of this encounter
--- OUTSIDE RECORDS SUMMARY | 2025-10-12 14:02 | XMS_ITS | Encounter Summary ---
Author Organization [facility] Address [address] [place] [address] Care Team Providers Care Gauger Delivery Name Role Phone Evelio Menezes MD Primary Care Provider Kwesi Colin MD Unavailable Encounter Details Date Type Department Care Team (Latest Contact Info) Description 09/25/2025 Travel Social History Tobacco Use Types Packs/Day [...] place to sleep or slept in a care home (including now)? No 06/12/2024 Utilities Answer [...] Info) Description 10/23/2025 2:00 PM EST Appointment [facility] Infusion Clinic 2 [address] [place] [address] 12/23/2025 1:00 PM EST Office Visit [facility] [facility] [place] Nephrology, Bone & Mineral Metabolism [address] [facility], [address] [place] [address] Ayden Sarmiento MD [address] [place] [address] 01/26/2026 1:30 PM EDT Office Visit Medical Office Building Surgery Sp[facility] & Joint [address] [facility], [address] [place] [address] Winston Rolle MD [address] [facility] 201 [place] [address] documented as of this encounter Visit Diagnoses Not on filedocumented in this encounter Additional Health Concerns Assessment Noted Time A fall risk assessment has been complete d for the patient 09/25/2025 1:42 PM EST A Body Mass Index follow-up plan has been documented for the patient 08/20/2025 10:48 PM EDT documented as of this encounter Care Teams Gauger Delivery Relationship Specialty Start Date End Date Evelio Menezes MD [address] [place] [address] PCP - General 04/01/21 Kwesi Colin MD 800 [facility] [address] [place] [address] Consulting Physician Medical Oncology 09/06/21 documented as of this encounter
--- OUTSIDE RECORDS SUMMARY | 2025-10-12 14:02 | XMS_ITS | Clinical Summary ---
Author Organization [facility] Address [address] [place] [address] Care Team Providers Care Retrimmer Name Role Phone Evelio Menezes MD Primary Care Provider [phone] Kwesi Colin MD Unavailable Allergies Active Allergy Reactions Criticality Noted Date Comments Albuterol Other - please document in the comment field Low 12/17/2018 nervousness Iodinated Contrast Media Other - please document in the comment field Low 10/02/2025 Iodine Other - please document in the comment field Low 10/25/2018 Contrast . Shaking all over Medications tamsulosin (Flomax) 0.4 MG 24 hr capsule Take 1 capsule (0.4 mg) by mouth nightly. Active docusate sodium (Colace) 100 MG capsule Take 1 capsule (100 mg) by mouth 2 (two) times a day as needed. Active atorvastatin (Lipitor) 20 MG tablet Take 1 tablet (20 mg) by mouth nightly. Active cetirizine (ZyrTEC) 10 MG tablet Take 1 tablet (10 mg) by mouth every morning. Active venlafaxine XR (Effoxor-XR) 37.5 MG 24 hr capsule Take 1 capsule (37.5 mg) by mouth nightly. Active Ostomy Supplies (NEW IMAGE DRAINABLE POUCH 70MM) Pouch misc See administration instructions. 022 Active Nutritional Supplements (Boost High Protein) liquid Drink 3 daily. 237 mL 11 023 Active Additional Information Patient taking differently: As needed, Drink 3 daily., Reported on 08/11/2025 prochlorperazine (Compazine) 10 MG tablet Take 1 tablet (10 mg) by mouth as needed. 023 Active ondansetron ODT (Zofran-ODT) 8 MG disintegrating tablet Take 1 tablet (8 mg) by mouth every 8 (eight) hours if needed for nausea or vomiting. 90 tablet 1 024 Active loperamide (Imodium A-D) 2 MG tablet Take 1 tablet (2 mg) by mouth 4 (four) times a day if needed for diarrhea. Active multivitamin (Theragran-M) tablet Take 1 tablet by mouth daily. Active pyridoxine 25 MG tablet Take 1 tablet (25 mg) by mouth daily. B6 Active levothyroxine (Synthroid) 75 MCG tablet Take 1 tablet (75 mcg) by mouth daily before breakfast. 30 tablet 1 025 Active zoledronic acid (Zometa) 4 MG/5ML injection Infuse 5 mL into a venous catheter every 3 months. Active NIFEdipine XL (Procardia XL) 90 MG 24 hr tabletIndication s:Primary hypertension Take 1 tablet by mouth daily. Do not crush, chew, or split. 90 tablet 2 025 2025 Active mirtazapine (Remeron) 15 MG tablet TAKE 1 TABLET (15 MG) BY MOUTH EVERY NIGHT. 90 tablet 1 025 Active oxyCODONE (Roxicodone) 5 MG immediate release tabletIndication s:Renal cell carcinoma of right kidney Take 1 tablet by mouth every 8 hours as needed for severe pain. 90 tablet 025 Active losartan (Cozaar) 100 MG tablet TAKE 1 TABLET BY MOUTH DAILY. 30 tablet 1 025 Active Tivozanib HCl 0.89 MG capsuleIndicatio ns:Renal cell carcinoma of right kidney Take 0.89 mg by mouth every other day. 15 capsule 5 025 Active diphenhydrAMINE (Benadryl) 50 MG capsuleIndicatio ns:Renal cell carcinoma of right kidney Take once 1 hour prior to scan 1 capsule 025 Active predniSONE (Deltasone) 50 MG tabletIndication s:Renal cell carcinoma of right kidney Take 1 tablet 13 hours prior to scan. Take 1 tablet 7 hours prior to scan. Take 1 tablet 1 hour prior to scan. 3 tablet Active hydrocortisone (Cortef) 5 MG tablet TAKE 4 TABLETS BY MOUTH ONCE DAILY FOR 3 DAYS 021 2021 Discontinued diphenhydrAMINE (Benadryl) 50 MG capsuleIndicatio ns:Renal cell carcinoma of right kidney Take once 1 hour prior to scan 1 capsule 025 2024 Discontinued(R eorder) predniSONE (Deltasone) 50 MG tabletIndication s:Renal cell carcinoma of right kidney Take 1 tablet 13 hours prior to scan. Take 1 tablet 7 hours prior to scan. Take 1 tablet 1 hour prior to scan. 3 tablet 025 2024 Discontinued(R eorder) Active Problems Problem Noted Date Diagnosed Date Secondary hyperparathyroidism 04/23/2025 BPH (benign prostatic hyperplasia) 06/23/2024 Cancer 06/23/2024 Overview (06/23/2024): colon Depression 06/23/2024 Personal history of other ma lignant neoplasm of rectum, rectosigmoid junction, and anus 06/23/2024 Overview (06/23/2024): History of rectal cancer Chemotherapy-induced diarrhea 06/10/2024 Metastatic renal cell carcinoma to lung 05/11/20 21 Chronic kidney disease, stage 3 12/20/2020 Renal cell carcinoma 12/31/2018 High blood cholesterol level 10/25/2018 Hypertension 10/25/2018 Mediastinal lymphadenopathy 10/17/2018 Resolved Problems Problem Noted Date Diagnosed Date Resolved Date Lung mass 10/17/2018 08/09/2025 Encounters Date Type Department Care Team Description 10/06/2025 Orders Only [facility] [address] [place] [phone] Kwesi Colin MD Renal cell carcinoma of right kidney (Primary Dx) 10/05/2025 11:11 AM EST - 10/05/2025 11:59 PM EST Hospital Encounter [facility] [address] [place] [phone] Renal cell carcinoma of right kidney Discharge Disposition: Home or Self Care 10/05/2025 Telephone [facility] [address] [place] [address] Kwesi Colin MD 10/05/2025 Travel 10/02/2025 Refill [facility] [address] [place] [phone] Lizzie Contreras, orthodontic band maker cell carcinoma of right kidney 10/02/2025 Orders Only [facility] [address] [place] [phone] Lizzie Contreras, RN 10/02/2025 Telephone [facility] [address] [place] [address] Xena Galvan RN 09/28/2025 Telephone [facility] [address] [place] [phone] Kwesi Colin MD 09/25/2025 2:00 PM EST Office Visit [facility] [address] [place] [phone] Kwesi Colin MD Renal cell carcinoma of right kidney (Primary Dx) 09/25/2025 Orders Only [facility] [address] [place] [phone] Kwesi Colin MD Renal cell carcinoma of right kidney (Primary Dx) 09/25/2025 Travel 08/28/2025 8:46 AM EDT - 08/28/2025 11:59 PM EDT Hospital Encounter [facility] [address] [place] [phone] Renal cell carcinoma of right kidney (Primary Dx) Discharge Disposition: Home or Self Care 08/28/2025 Travel 08/18/2025 Refill [facility] [address] [place] [phone] Kwesi Colin MD Renal cell carcinoma of right kidney 08/11/2025 11:40 AM EDT Office Visit [facility] Nephrology, Bone & Mineral Metabolism [address], [address] [place] [address] Ayden Sarmiento MD Stage 3 chronic kidney disease, unspecified whether stage 3a or 3b CKD (CMS/HCC) (Primary Dx); Primary hypertension; Secondary hyperparathyroidism (CMS/HCC); Hyperkalemia 08/11/2025 Travel 07/31/2025 2:24 PM EDT - 07/31/2025 11:59 PM EDT Hospital Encounter [facility] [address] [place] [phone] Renal cell carcinoma of right kidney (Primary Dx) Discharge Disposition: Home or Self Care 07/31/2025 2:00 PM EDT Office Visit [facility] [address] [place] [address] Mary Daley APRN Renal cell carcinoma of right kidney (Primary Dx); Stage 3 chronic kidney disease, unspecified whether stage 3a or 3b CKD (CMS/HCC) 07/31/2025 Travel from Last 3 Months Family History Medical History Relation Name Comments Cancer Father Cancer Mother Conversions - Other Mother No known health problems Conversions - Other Other No known health problems Relation Name Status Comments Father Mother Other Social History Tobacco Use Types Packs/Day Years [...] on file Sexual Orientation Not on file Last Filed Vital Signs Vital Sign Reading Time Taken Comments Blood Pressure 135/79 09/25/2025 1:42 PM EST Pulse 69 09/25/2025 1:42 PM EST Temperature 36.6 C (97.9 F) 09/25/2025 1:42 PM EST Respiratory Rate 16 08/28/2025 8:47 AM EDT Oxygen Saturation 97% 09/25/2025 1:42 PM EST Inhaled Oxygen Concentration - - Weight 93.9 kg (207 lb) 09/25/2025 1:42 PM EST Height 180.3 cm (5' 11 ) 09/25/2025 1:42 PM EST Body Mass Index 28.87 09/25/2025 1:42 PM EST Plan of Treatment Upcoming Encounters Date Type Department Care Team (Late st Contact Info) Description 10/23/2025 2:00 PM EST Appointment [facility] [address] [place] [address] 12/23/2025 1:00 PM EST Office Visit [facility] Nephrology, Bone & Mineral Metabolism [address], [address] [place] [address] Ayden Sarmiento MD [address] [place] [phone] 01/26/2026 1:30 PM EDT Office Visit Medical [facility] [address], [address] [place] [address] Winston Rolle MD [address] [place] [address] Health Maintenance Due Date Last Done Comments [facility]-Medicare Annual Wellness (AWV) 1945 [facility]-Infant/Child/Adol SDOH Screenings 1945 [facility]- SDOH Screenings 1964 [facility]-Adult SDOH Screenings 1964 [facility]-DTaP,Tdap,and Td Vaccines (1 - Tdap) 1965 [facility]-Pneumococcal Vaccine: 50+ Years (1 of 2 - PCV) 1965 [facility]-Zoster Vaccines (1 of 2) 1965 [facility]-RSV Vaccine: 60+ Years or (1 - 1-dose 75+ series) 2021 [id number] Vaccine ( - 2024- season) 2025 10/20/2021, 01/20/2021, 12/23/2020 [facility]-Influenza Vaccine (#1) 2025 08/08/2024 [facility]-Depression Screening 07/31/2026 07/31/2025, 12/2023 [facility]-Diabetes: Hemoglobin A1C Discontinued 10/05/2021, 10/22/2018 [facility]-Hepatitis C Screening Completed 06/10/2024 [facility]-Obesity Intervention Completed 025, 06/23/2025, 04/14/2025, Additional history exists HPV Vaccines Aged Out No longer eligi ble based on patient's age to complete this topic [facility]-HIB Vaccines Aged Out No longer e ligible based on patient's age to complete this topic [facility]-Hepatitis A Vaccines Aged Out No longer eligible based on patient's age to complete this topic [facility]-IPV Vaccines Aged Out No longer e ligible based on patient's age to complete this topic [facility]-Rotavirus Vaccines Aged Out No lo nger eligible based on patient's age to complete this topic Procedures Procedure Name Priority Date/Time Associated Diagnosis Comments CT CHEST WO IV CONTRAST Routine 10/05/2025 12:42 PM EST Renal cell carcinoma of right kidney CT ABDOMEN PELVIS WO IV CONTRAST Routine 10/05/2025 12:42 PM EST Renal cell carcinoma of right kidney POCT CREATININE ISTAT UNSOLICITED RESULTS Routine 10/05/2025 11:39 AM EST CBC WITH AUTO DIFFERENTIAL Routine 09/25/2025 2:07 PM EST Renal cell carcinoma of right kidney COMPREHENSIVE METABOLIC PANEL, PLASMA Routine 09/25/2025 2:07 PM EST Renal cell carcinoma of right kidney COMPREHENSIVE METABOLIC PANEL, PLASMA STAT 08/28/2025 8:51 AM EDT Renal cell carcinoma of right kidney URINALYSIS MICROSCOPIC FOR UA REFLEX Routine 07/31/2025 2:04 PM EDT Renal cell carcinoma of right kidney Stage 3 chronic kidney disease, unspecified whether stage 3a or 3b CKD (CMS/HCC) PHOSPHORUS, PLASMA Routine 07/31/2025 2: 04 PM EDT Renal cell carcinoma of right kidney Stage 3 chronic kidney disease, unspecified whether stage 3a or 3b CKD (CMS/HCC) PTH INTACT TOTAL Routine 07/31/2025 2:04 PM EDT Renal cell carcinoma of right kidney Stage 3 chronic kidney disease, unspecified whether stage 3a or 3b CKD (CMS/HCC) CBC WITH AUTO DIFFERENTIAL Routine 07/31/2025 2:04 PM EDT Renal cell carcinoma of right kidney COMPREHENSIVE METABOLIC PANEL, PLASMA Routine 07/31/2025 2:04 PM EDT Renal cell carcinoma of right kidney URINALYSIS WITH REFLEX MICROSCOPIC Routine 07/31/2025 2:04 PM EDT Renal cell carcinoma of right kidney Stage 3 chronic kidney disease, unspecified whether stage 3a or 3b CKD (CMS/HCC) PTH PANEL 1 Routine 07/31/2025 2:04 PM EDT Renal cell carcinoma of right kidney Stage 3 chronic kidney disease, unspecified whether stage 3a or 3b CKD (CMS/HCC) VITAMIN D, 1, 25-DIHYDROXY Routine 07/31/2025 2:04 PM EDT Renal cell carcinoma of right kidney Stage 3 chronic kidney disease, unspecified whether stage 3a or 3b CKD (CMS/HCC) ALBUMIN, URINE, RANDOM Routine 07/31/2025 2:04 PM EDT Renal cell carcinoma of right kidney Stage 3 chronic kidney disease, unspecified whether stage 3a or 3b CKD (CMS/HCC) IONIZED CALCIUM, SERUM Routine 07/31/2025 2:04 PM EDT Renal cell carcinoma of right kidney Stage 3 chronic kidney disease, unspecified whether stage 3a or 3b CKD (CMS/HCC) HEPATITIS C ANTIBODY - ED W/REFLEX TO HCV QUANT PCR STAT 06/10/2024 5:59 PM EDT HEMOGLOBIN A1C Routine 10/05/2021 10:53 AM EST Renal cell carcinoma of right kidney (CMS/HCC) Hyperlipidemia, unspecified hyperlipidemia type Routine check-up Vitamin D deficiency disease Abnormal blood sugar from Last 3 Months or Most Recently Relevant to Health Maintenance Results * CT Chest wo IV Contrast [...] Total DLP (Dose-Length Product): 619.64 mGy.cm (accession [id number]), 619.64 mGy.cm (accession [id number]). Please note: The reported value represents the [...] Total DLP (Dose-Length Product): 619.64 mGy.cm (accession [id number]),619.64 mGy.cm (accession [id number]). Please note: The reported valuerepresents the total [...] Total DLP (Dose-Length Product): 619.64 mGy.cm (accession [id number]), 619.64 mGy.cm (accession [id number]). Please note: The reported value represents the [...] Total DLP (Dose-Length Product): 619.64 mGy.cm (accession [id number]),619.64 mGy.cm (accession [id number]). Please note: The reported valuerepresents the total [...] MD IMG CT PROCEDURES Final Result * (ABNORMAL) POCT creatinine (10/05/2025 11:39 AM EST) [facility] Creatinine, Point of Care 2.7(H) 0.7 - 1.2 mg/dL 10/05/2025 11:43 AM EST [facility] POCT eGFR 23 mL/min/1. 73m*2 10/05/2025 11:43 AM EST [facility] Infrastructure Solutions Architect ID Pham Russell 10/05/2025 11:43 AM EST [facility] Device ID [id number] 10/05/2025 11:43 AM EST [facility] Comment 10/05/2025 11:43 AM EST [facility] Comment:Testing performed on i-STAT at the point of care. Reported eGFRcr in mL/min/1.73m2 is based the CKD-EPI 2020 equation that does not use a race coefficient. Blood Venous blood specimen / Unknown 10/05/2025 11:39 AM EST 10/05/2025 11:43 AM EST Generic Provider Poct LAB POINT OF CARE TEST DOCKED DEVICE UNSOLICITED RESULTS Final Result [facility] [address] [facility] [address] [place] [address] * (ABNORMAL) CBC and Differential (09/25/2025 2:07 PM EST) Only the most recent of2 resultswithin the time period is included. [facility] WBC Count 6.55 3.70 - 10.30 10*3/uL LAB HEMATOLOGY METHOD 09/25/2025 2:39 PM EST [facility] RBC Count 3.92(L) 4.60 - 6.10 10*6/uL LAB HEMATOLOGY METHOD 09/25/2025 2:39 PM [facility] HGB 12.4(L) 13.7 - 17.5 g/dL LAB HEMATOLOGY METHOD 09/25/2025 2:39 PM [facility] HCT 39.2(L) 40.0 - 51.0 % LAB HEMATOLOGY METHOD 09/25/2025 2:39 PM [facility] Platelet Count 154(L) 155 - 369 10*3/uL LAB HEMATOLOGY METHOD 09/25/2025 2:39 PM [facility] MCV 100(H) 79 - 98 fL LAB HEMATOLOGY METHOD 09/25/2025 2:39 PM [facility] MCH 31.6 26.0 - 32.0 pg LAB HEMATOLOGY METHOD 09/25/2025 2:39 PM [facility] MCHC 31.6 30.7 - 35.5 g/dL LAB HEMATOLOGY METHOD 09/25/2025 2:39 PM [facility] RDW 14.6(H) 11.5 - 14.5 % LAB HEMATOLOGY METHOD 09/25/2025 2:39 PM [facility] MPV 9.8 8.8 - 12.5 fL LAB HEMATOLOGY METHOD 09/25/2025 2:39 PM [facility] nRBC 0.0 <=0.0 per 100 WBCs LAB HEMATOLOGY METHOD 09/25/2025 2:39 PM [facility] Differential Type Automated LAB HEMATOLOGY METHOD 09/25/2025 2:39 PM [facility] Neutrophils % 65 % LAB HEMATOLOGY METHOD 09/25/2025 2:39 PM [facility] Lymphocytes % 27 % LAB HEMATOLOGY METHOD 09/25/2025 2:39 PM [facility] Monocytes % 6 % LAB HEMATOLOGY METHOD 09/25/2025 2:39 PM [facility] Eosinophils % 1 % LAB HEMATOLOGY METHOD 09/25/2025 2:39 PM [facility] Basophils % 0 % LAB HEMATOLOGY METHOD 09/25/2025 2:39 PM [facility] Immature Granulocytes % 1 % LAB HEMATOLOGY METHOD 09/25/2025 2:39 PM [facility] Neutrophils Absolute 4.31 1.60 - 6.10 10*3/uL LAB HEMATOLOGY METHOD 09/25/2025 2:39 PM EST [facility] Lymphocytes Absolute 1.79 1.20 - 3.90 10*3/uL LAB HEMATOLOGY METHOD 09/25/2025 2:39 PM EST [facility] Monocytes Absolute 0.36 0.30 - 0.90 10*3/uL LAB HEMATOLOGY METHOD 09/25/2025 2:39 PM EST [facility] Eosinophils Absolute 0.04 0.00 - 0.50 10*3/uL LAB HEMATOLOGY METHOD 09/25/2025 2:39 PM EST [facility] Basophils Absolute 0.02 0.00 - 0.10 10*3/uL LAB HEMATOLOGY METHOD 09/25/2025 2:39 PM EST [facility] Immature Granulocytes Absolute 0.03 0.00 - 0.06 10*3/uL LAB HEMATOLOGY METHOD 09/25/2025 2:39 PM EST [facility] Blood Venous blood specimen / Unknown Venipuncture / Unknown 09/25/2025 2:07 PM EST 09/25/2025 2:30 PM EST Narrative [facility] - 09/25/2025 2:39 PM EST Therapeutic decision making should be based on absolute values, rather than percentages. us Kwesi Colin MD LAB BLOOD ORDERABLES Final Resul t [facility] [address] [place] [address] * (ABNORMAL) Comprehensive Metabolic Panel, Plasma (09/25/2025 2:07 PM EST) Only the most recent of3 resultswithin the time period is included. Glucose, Plasma 96 74 - 99 mg/dL 09/25/2025 3:12 PM EST [facility] BUN, Plasma 22 8 - 23 mg/dL 09/25/2025 3:12 PM EST [facility] Creatinine, Plasma 2.72(H) 0.70 - 1.20 mg/dL 09/25/2025 3:12 PM EST [facility] BUN/Creatinine Ratio 8 09/25/2025 3:12 PM EST [facility] Sodium, Plasma 141 136 - 145 mmol/L 09/25/2025 3:12 PM EST [facility] Potassium, Plasma 4.0 3.6 - 4.9 mmol/L 09/25/2025 3:12 PM EST [facility] Chloride, Plasma 109(H) 97 - 107 mmol/L 09/25/2025 3:12 PM EST [facility] CO2, Plasma 20(L) 22 - 29 mmol/L 09/25/2025 3:12 PM EST [facility] Anion Gap 12 6 - 16 mmol/L 09/25/2025 3:12 PM EST [facility] Total Calcium, Plasma 8.5(L) 8.9 - 10.2 mg/dL 09/25/2025 3:12 PM EST [facility] Total Protein 7.2 6.3 - 7.9 g/dL 09/25/2025 3:12 PM EST [facility] Albumin, Plasma 4.0 3.5 - 5.2 g/dL 09/25/2025 3:12 PM EST [facility] AST, Plasma 22 10 - 50 U/L 09/25/2025 3:12 PM EST [facility] ALT, Plasma 15 10 - 50 U/L 09/25/2025 3:12 PM EST [facility] Alkaline Phosphatase, Plasma 101 40 - 115 U/L 09/25/2025 3:12 PM EST [facility] Total Bilirubin, Plasma 0.3 0.2 - 1.1 mg/dL 09/25/2025 3:12 PM EST [facility] eGFRcr 23.0 mL/min/1.7 3m*2 09/25/2025 3:12 PM EST [facility] Comment:Reported eGFRcr in m L/min/1.73m2 is based the CKD-EPI 2020 equation that does not use a race coefficient. Blood Venous blood specimen / Unknown Venipuncture / Unknown 09/25/2025 2:07 PM EST 09/25/2025 2:29 PM EST us Kwesi Colin MD LAB BLOOD ORDERABLES Final Resul t [facility] [address] [place] [address] * Urinalysis Microscopic Examination (07/31/2025 2:04 PM EDT) Urine Urine specimen obtained by clean catch procedure / Unknown Non-blood Collection / Unknown 07/31/2025 2:04 PM EDT 07/31/2025 2:56 PM EDT VigLinkeka S [place] VICE PRESIDENT PAYER LAB URINE ORDERABLES Final R esult Performing Organization Address City/[facility]/ZIP Co de Phone Number [facility] [address] [place] [address] * IONIZED CALCIUM, SERUM (07/31/2025 2:04 PM EDT) Ionized Calcium, Serum 4.9 4.6 - 5.3 mg/dL LAB HEMATOLOGY METHOD 07/31/2025 3:22 PM EDT [facility] Blood Venous blood specimen / Unknown Venipuncture / Unknown 07/31/2025 2:04 PM EDT 07/31/2025 2:44 PM EDT VigLinkeka S Hingham VICE PRESIDENT PAYER LAB BLOOD ORDERABLES Final R esult Performing Organization Address City/[facility]/[place] [address] * (ABNORMAL) Albumin-creatinine ratio, urine, random (07/31/2025 2:04 PM EDT) Microalbumin, Urine 4.42(H) <1.9 mg/dL 07/31/2025 4:08 PM EDT [facility] Creatinine, Urine 116 mg/dL 07/31/2025 4:08 PM EDT [facility] Albumin/Creat inine Ratio 38(H) 0 - 30 mg/g creatinine 07/31/2025 4:08 PM EDT [facility] Urine Urine specimen obtained by clean catch procedure / Unknown Non-blood Collection / Unknown 07/31/2025 2:04 PM EDT 07/31/2025 3:19 PM EDT VigLinkeka S [place]ingham VICE PRESIDENT PAYER LAB URINE ORDERABLES Final R esult Performing Organization Address [facility]/ZIP Co de Phone Number [facility] [address] [place] [address] * Vitamin D 1,25 dihydroxy (07/31/2025 2:04 PM EDT) Pathologist [facility] VITAMIN D, 1, 25-DIHYDROXY 63.1 19.9 - 79.3 pg/mL 07/31/2025 4:38 PM EDT [facility] Blood Venous blood specimen / Unknown Venipuncture / Unknown 07/31/2025 2:04 PM EDT 07/31/2025 2:44 PM EDT us Mary Daley VICE PRESIDENT PAYER LAB BLOOD ORDERABLES Final R esult Performing Organization Address [facility]/ZIP Co de Phone Number [facility] [address] [place] [address] * (ABNORMAL) Urinalysis with reflex microscopic (Culture NOT Included) (07/31/2025 2:04 PM EDT) Pathologist [facility] Color, Urine Yellow LAB URINALYSIS - AUTOMATED METHOD 07/31/2025 3:05 PM EDT [facility] Clarity, Urine Clear LAB URINALYSIS - AUTOMATED METHOD 07/31/2025 3:05 PM EDT [facility] Spec [place], Urine 1.017 1.005 - 1.030 LAB URINALYSIS - AUTOMATED METHOD 07/31/2025 3:05 PM EDT [facility] pH, Urine 6.0 5.0 - 8.0 LAB URINALYSIS - AUTOMATED METHOD 07/31/2025 3:05 PM EDT [facility] Protein, Urine 30(A) Negative mg/dL LAB URINALYSIS - AUTOMATED METHOD 07/31/2025 3:05 PM EDT [facility] Glucose, Urine Negative Negative mg/dL LAB URINALYSIS - AUTOMATED METHOD 07/31/2025 3:05 PM EDT [facility] Ketones, Urine Negative Negative mg/dL LAB URINALYSIS - AUTOMATED METHOD 07/31/2025 3:05 PM EDT [facility] Blood, Urine Trace(A) Negative LAB URINALYSIS - AUTOMATED METHOD 07/31/2025 3:05 PM EDT [facility] Bilirubin, Urine Negative Negative LAB URINALYSIS - AUTOMATED METHOD 07/31/2025 3:05 PM EDT [facility] Urobilinogen, Urine 1.0 0.2 to 1.0 mg/dL LAB URINALYSIS - AUTOMATED METHOD 07/31/2025 3:05 PM EDT [facility] Leukocytes, Urine Moderate(A) Negative LAB URINALYSIS - AUTOMATED METHOD 07/31/2025 3:05 PM EDT [facility] Nitrite, Urine Negative Negative LAB URINALYSIS - AUTOMATED METHOD 07/31/2025 3:05 PM EDT [facility] RBC, Urine 4 - 10(A) 0 to 3 /HPF LAB URINALYSIS - AUTOMATED METHOD 07/31/2025 3:05 PM EDT [facility] WBC, Urine 21 - 50(A) 0 to 5 /HPF LAB URINALYSIS - AUTOMATED METHOD 07/31/2025 3:05 PM EDT [facility] Squamous Epithelial Cells 0 - 2 0 to 5 /HPF LAB URINALYSIS - AUTOMATED METHOD 07/31/2025 3:05 PM EDT [facility] Hyaline Casts 0 - 2 0 to 5 /LPF LAB URINALYSIS - AUTOMATED METHOD 07/31/2025 3:05 PM EDT [facility] Bacteria, Urine Negative Negative LAB URINALYSIS - AUTOMATED METHOD 07/31/2025 3:05 PM EDT [facility] Urine Urine specimen obtained by clean catch procedure / Unknown Non-blood Collection / Unknown 07/31/2025 2:04 PM EDT 07/31/2025 2:56 PM EDT us Mary Daley VICE PRESIDENT PAYER LAB URINE ORDERABLES Final R esult [facility] [address] [place] [address] * (ABNORMAL) Phosphorus, Plasma (07/31/2025 2:04 PM EDT) Phosphorus, Plasma 2.4(L) 2.5 - 4.5 mg/dL 07/31/2025 3:18 PM EDT [facility] Blood Venous blood specimen / Unknown Venipuncture / Unknown 07/31/2025 2:04 PM EDT 07/31/2025 2:43 PM EDT [facility] B[facility] Final R esult [facility] [address] [place] [address] * (ABNORMAL) PTH Intact Total (07/31/2025 2:04 PM EDT) Pathologist [facility] PTH Intact Total 419(H) 9 - 77 pg/mL 07/31/2025 3:25 PM EDT [facility] Blood Venous blood specimen / Unknown Venipuncture / Unknown 07/31/2025 2:04 PM EDT 07/31/2025 3:08 PM EDT Narrative [facility] - 07/31/2025 3:25 PM EDT Assay performed by immunoassay at the [facility]. Performed on Rg Rehab Director Occupational Therapist chemiluminescent immunoassay, tractable to the World Health Organization's first international standard for PTH from the [employer], Code 79/500. Results obtained from different test methods or kits cannot be used interchangeably. Mary [facility] BLOOD ORDERABLES Final R esult Performing Organization Address City/[facility]/ZIP Co de Phone Number [facility] [address] [place] [address] * Hepatitis C Antibody - ED (06/10/2024 5:59 PM EDT) [facility] Hepatitis C Antibody Negative Negative 06/10/2024 6:59 PM EDT [facility] Blood Venous blood specimen / Unknown Venipuncture / Unknown 06/10/2024 5:59 PM EDT 06/10/2024 6:17 PM EDT Brando Jones MD LAB BLOOD ORDERABLES Final R esult Performing Organization Address City/[facility]/ZIP Co de Phone Number [facility] [address] [place] [address] * (ABNORMAL) Hemoglobin A1c (10/05/2021 10:53 AM EST) Hemoglobin A1c 6.0(H) <5.7 % 10/05/2021 12:25 PM EST [facility] Blood Venous blood specimen / Unknown Venipuncture / Unknown 10/05/2021 10:53 AM EST 10/05/2021 12:06 PM EST Narrative [facility] - 10/05/2021 12:25 PM EST HA1C Interpretive Data: Diagnosis of Diabetes: Diabetic > or = 6.5% Pre-diabetic 5.7 to 6.4% Non-diabetic < or = 5.6% Glycemic Targets for Type I and Type II Diabetics: Non- Adults <7.0% Adults <6.0% Children and Adolescents <7.5% Source: [place] [employer]. Standards of medical care in diabetes,2017. Diabetes Care.2017:40 (suppl 1):S1-S135. HbA1c assay performed by an ion-exchange chromatography method that is certified traceable to the DCCT. [facility] LAB BLOOD ORDERABLES Final Resul t [facility] [address] [place] [address] from Last 3 Months or Most Recently Relevant to Health Maintenance Insurance MEDICARE [facility] Advance Directives * Full Code (Latest Code Status on File) Date Activated Date Inactivated Comments 06/10/2024 10:02 PM 06/13/2024 5:46 PM Question Answer Comments Patient has decision-making capacity? Yes Care Teams Retrimmer Relationship Specialty Start Date End Date Evelio Menezes MD [address] [place] [phone] PCP - General 04/01/21 Kwesi Colin MD [address] [phone] Consulting Physician Medical Oncology 09/06/21
--- OUTSIDE RECORDS SUMMARY | 2025-10-12 14:02 | XMS_ITS | Referral Summary ---
Author Organization [employer] ([place], [place], [place], [place], [place]) Address [address] [place] [address] Care Team Providers Care Furniture Sales Associate Name Role Phone Roseline Payne Primary Care Provider Social History Tobacco Use Types Packs/Day Years Used Date Smoking Tobacco: Never Assessed Sex and Gender Information Value Date Recorded Sex Assigned at Not on file Legal Sex Male 5:25 PM CDT Gender Identity Not on file Sexual Orientation Not on file Plan of Treatment Not on file Insurance MEDICARE PART A B [facility] Care Teams Furniture Sales Associate Relationship Specialty Start Date End Date Roseline Payne PA [address] [place] [phone] PCP - General Physician Liner Assembler 05/01/23
--- OUTSIDE RECORDS SUMMARY | 2025-10-12 14:02 | XMS_ITS ---
Author Organization [facility] Address [address] [place] [address] Care Team Providers Care Drawer Hardware Worker Name Role Phone Evelio Menezes MD Primary Care Provider [phone] Kwesi Colin MD Unavailable Active Problems Problem Noted Date Diagnosed Date [...] level 10/25/2018 Hypertension 10/25/2018 Mediastinal lymphadenopathy 10/17/2018 Current Treatment and Therapy Plans (Hem/Onc) Zoledronic Acid* Plan Start Date:06/26/2025 Plan Provider:Kwesi Colin MD Linked Problems Renal cell carcinoma of righ t kidney Treatment Medications No medications scheduled. (ONC) MED ONC OUTPATIENT ELECTROLYTE REPLACEMENT PROTOCOL* Plan Start Date: 10/05/2023 Plan Provider:Chante Cary APRN Linked Problems Renal cell carcinoma of righ t kidney Treatment Medications No medications scheduled. LINE CARE* Plan Start Date:05/19/2022 Plan Provider:Kwesi Colin MD Linked Problems Renal cell carcinoma of righ t kidneyStage 3 chronic kidney disease, unspecified whether stage 3a or 3b CKD (CMS/HCC) Treatment Medications No medications scheduled. Past Treatment and Therapy Plans Infusion Treatment 1 Plan Name Start Date Discontinue Date Treatment Medications Discontinue Reason Plan Provider (Hem/Onc) Zoledronic Acid 02/13/2025 06/26/2025 No medications scheduled. Other (See Comments) Kwesi Colin MD IV FLUID NO ELECTROLYTES 10/05/2023 11/02/2023 No medications scheduled. Therapy Complete Aida Nance APRN IV FLUID NO ELECTROLYTES 03/11/2023 10/05/2023 No medications scheduled. Therapy Complete Kwesi Colin MD IV FLUID NO ELECTROLYTES 03/01/2023 03/09/2023 No medications scheduled. Therapy Complete Kwesi Colin MD IV FLUID NO ELECTROLYTES 11/02/2021 01/25/2022 No medications scheduled. Therapy Complete Kwesi Colin MD SCHEDULED IV FLUIDS WITH AND WITHOUT ELECTROLYTES 08/05/2021 10/19/2021 No medications scheduled. Therapy Complete Kwesi Colin MD Infusion Treatment 3 Plan Name Start Date Discontinue Date Treatment Medications Discontinue Reason Plan Provider IV Fluid NO Electrolytes 06/23/2024 01/08/2025 No medications scheduled. Therapy Complete Mainor Castorena MD Oncology Treatment Plan Name Start Date Discontinue Date Treatment Medications Discontinue Reason Plan Provider Cycles [id number]: Tivozanib + Nivolumab Every 28 Days 3 12/19/2024 RES - nivolumab IVPBRES - tivozanib (Fotivda) Therapy Complete Kwesi Colin MD 22 of 25 cycles started Nivolumab Every 28 Days 10/04/20 22 03/09/2023 nivolumab (Opdivo) IVPB Other (See Comments) Kwesi Colin MD 5 of 24 cycles started [id number] Arm A: Nivolumab Every 28 Days 1 10/04/2022 RES - nivolumab IVPB Other (See Comments) Kwesi Colin MD 15 of 20 cycles started [id number] Induction: Nivolumab / Ipilimumab Every 21 Days 1 08/10/2021 RES - ipilimumab (Yervoy) IVPBRES - nivolumab IVPB Therapy Complete Dixie, Kwesi Gilliam MD 4 of 4 cycles started Lifetime Dose Tracking * Chemical Lifetime Dose Automatic Entry Manual Entr y Radiation (DLP) Retired 1,097 mGy-cm. 1,097 mGy-cm. 0 mGy-cm. CTDIvol 220.38 mGy 220.38 mGy 0 mGy Resolved Problems Problem Noted Date Diagnosed Date Resolved Date Lung mass 10/17/2018 08/09/2025
--- OUTSIDE RECORDS SUMMARY | 2025-10-12 14:02 | XMS_ITS | Encounter Summary ---
Author Organization [facility] Address [address] [place] [address] Care Team Providers Care Chief Vendor Quality Name Role Phone Evelio Menezes MD Primary Care Provider [phone] Kwesi Colin MD Unavailable Reason for Referral * Medications - Authorized Specialty Diagnoses / Procedures Referred By Conthector t Referred To Contact Diagnoses Renal cell carcinoma of right kidney Kweis Colin MD [address] [place] [address] [phone] Phone: tel: fax: Referral ID Status Reason Start Date Expiration Date V isits Requested Visits Authorized [id number] Authorized 11/19/2025 11/19/2026 1 1 Reason for Visit * Reason Onset Date Comments Med Refill 08/18/2025 Encounter Details Date Type Department Care Team (Late st Contact Info) Description 08/18/2025 Refill [facility] [address] [place] [address] Kwesi Colin MD [address] [place] [phone] Renal cell carcinoma of right kidney Social [...] place to sleep or slept in a prison (including now)? No 06/12/2024 Utilities Answer Date [...] Upcoming Encounters Date Type Department Care Team ([facility] st Contact Info) Description 10/23/2025 2:00 PM EST Appointment [facility] [address] [place] [address] 12/23/2025 1:00 PM EST Office Visit [facility] Nephrology, Bone & Mineral Metabolism [address] [facility], [address] [place] [address] Ayden Sarmiento MD [address] [place] [address] 01/26/2026 1:30 PM EDT Office Visit Medical Office Building Surgery [facility] [address] [facility], [address] [place] [address] Winston Rolle MD [address] [place] [address] documented as of this encounter Visit Diagnoses Diagnosis Renal cell carcinoma of right kidney documented in this encounter Additional Health Concerns Assessment Noted Time A fall risk assessment has been complete d for the patient 08/11/2025 11:34 AM EDT A Body Mass Index follow-up plan has been documented for the patient 08/20/2025 10:48 PM EDT documented as of this encounter Care Teams Chief Vendor Quality Relationship Specialty Start Date End Date Evelio Menezes MD [address] [place], [place] [phone] PCP - General 04/01/21 Kwesi Colin MD [address] [facility] [address] [place] [phone] Consulting Physician Medical Oncology 09/06/21 documented as of this encounter
--- OUTSIDE RECORDS SUMMARY | 2025-10-12 14:02 | XMS_ITS | Encounter Summary ---
Author Organization [facility] Address [address] [place] [address] Care Team Providers Care Media Relations Intern Name Role Phone Evelio Menezes MD Primary Care Provider [phone] Kwesi Colin MD Unavailable Encounter Details Date Type Department Care Team (Latest Contact Info) Description 08/28/2025 Travel Social History Tobacco Use Types Packs/Day [...] place to sleep or slept in a fci (including now)? No 06/12/2024 Utilities Answer Date [...] Info) Description 10/23/2025 2:00 PM EST Appointment [facility] Infusion Clinic [address] [place] [address] 12/23/2025 1:00 PM EST Office Visit [facility] Nephrology, Bone & Mineral Metabolism [address] [facility], [address] [place] [address] Ayden Sarmiento MD [address] [place] [phone] 01/26/2026 1:30 PM EDT Office Visit Medical Office Building Surgery Spine & Joint [address] [facility], [address] [place] [address] Winston Rolle MD [address] [facility] [address] [place] [phone] documented as of this encounter Visit Diagnoses Not on filedocumented in this encounter Additional Health Concerns Assessment Noted Time A fall risk assessment has been complete d for the patient 08/28/2025 8:46 AM EDT A Body Mass Index follow-up plan has been documented for the patient 08/20/2025 10:48 PM EDT documented as of this encounter Care Teams Media Relations Intern Relationship Specialty Start Date End Date Evelio Menezes MD [address] [place] [address] PCP - General 04/01/21 Kwesi Colin MD 800 [facility] [address] [place] [phone] Consulting Physician Medical Oncology 09/06/21 documented as of this encounter
== END 2025-10-12 23:59 | disposition home or self-care (01) ==
LOC: LAB 13:47
PROVIDERS: PCP Physician Assistant; Visit Provider Internal Medicine Hematology & Oncology
DX: C64.1 Malignant neoplasm of right kidney, except renal pelvis (principal)
CPT/HCPCS: 82570; 84156